=== PATIENT | female | born 1960 | race Caucasian/White ===

== ENCOUNTER 2021-06-17 06:13 | Day surgery (SDC) | payer OTHER, SELFPAY ==
[2021-06-06 13:03] VITALS: BMI 34.2
--- NOTE | 2021-06-07 08:02 | MHC.SHP ---
Pre-Procedural Eval Section A Date of Service: 06/07/21 The patient is an INPATIENT: No The History & Physical has been completed within 30 days and I have reviewed it.: Yes Section B Chief Complaint: cataract Allergies: Allergies Allergy/AdvReac Type Severity Reaction Status Date / Time bupropion [From Wellbutrin] Allergy Severe hyperactivi Verified 06/06/21 13:09 ty levofloxacin [Levaquin] Allergy Severe muscle Verified 06/06/21 13:09 aches latex Allergy Intermediate Rash Verified 06/06/21 13:10 Plan Diagnosis/Plan: Unchanged I have reviewed the history and physical and performed a pertinent physical examination on my patient. No changes have occurred unless specified.
[2021-06-17 06:40] VITALS: BP 138/83; PULSE 76; RESP 18; TEMP 36.2; O2SAT 97
[2021-06-17] MEDS: Lactated Ringers 1,000 ML 50 ML IVCONT (06:51)
[2021-06-17] MEDS: Tetracaine HCl/PF 0.5% Oph Sol 4 ML DROPS 1 DROP EYE-RIGHT (07:00)
[2021-06-17] MEDS: Tropicamide 1 % Ophth Sol 3 ML BTL 1 DROP EYE-RIGHT ×3 (07:01→07:13)
[2021-06-17] MEDS: Phenylephrine HCL 2.5% Oph SoL 2 ML BOTTLE 1 DROP EYE-RIGHT ×3 (07:05→07:17)
--- NOTE | 2021-06-17 07:34 | HO.ANESPROP2 ---
HPI - Anesthesia Eval Consult details Narrative: Right eye Cataract PMFSH Past Medical History Medical History Arthritis COVID-19 vaccine series completed Depression Elevated cholesterol HTN (hypertension) Cognitive capacity: AAO X3 Functional capacity: independent ambulation Family History Family history of problems with anesthesia: No Surgical History Surgical History H/O colonoscopy History of bunionectomy Hx of arthroscopic knee surgery Hx of arthroscopy of knee Hx of cervical discectomy Hx of hand surgery Hx of tonsillectomy History of Problems with Anesthesia: No Social History Social History Are you a primary inspector health care facilities to a significant other at home: No Do you presently have visiting nurse or other home services: No Patient Tobacco Use Status: Current everyday Tobacco user Tobacco use type: Cigarette Cigarettes Per Day: 5 Years Smoked: 42 Use of substances other than those prescribed or required for medical reasons: No Have you been hit, kicked, punched, or otherwise hurt by someone within the past year? If so, by whom?: No Are you DNR?: No Advance Directives: No Advance Directives Information Provided: Yes (does not have HCP) Advance Directives on File: No Recently lost weight without trying: No Eating poorly because of decreased appetite: No Nutrition Risks: No Nutritional Risk Poor oral hygiene: No Meds Allergies Allergy/AdvReac Type Severity Reaction Status Date / Time bupropion [From Wellbutrin] Allergy Severe hyperactivi Verified 06/17/21 06:33 ty levofloxacin [Levaquin] Allergy Severe muscle Verified 06/17/21 06:33 aches latex Allergy Intermediate Rash Verified 06/17/21 06:33 Active Medications: Current Medications Generic Name Dose Route Start Last Admin Trade Name Freq PRN Reason Stop Dose Admin Lactated Ringer's 1,000 mls @ 50 mls/hr 06/14/21 12:15 06/17/21 06:51 Lr IVCONT 50 mls/hr .Q20H ARNEL Administration Povidone Iodine 1 appl 06/07/21 14:49 Povidone Iodine 5 % Ophth Soln 30 Ml Bottle EYE-RIGHT PREOP PRN Pre-Op Surgical Implant Prophy Povidone Iodine 1 appl 06/17/21 06:53 Povidone Iodine 5 % Ophth Soln 30 Ml Bottle EYE-RIGHT PREOP PRN Pre-Op Surgical Implant Prophy Tetracaine HCl 1 drop 06/17/21 14:51 06/17/21 07:00 Tetracaine Hcl/Pf 0.5% Oph Marleny 4 Ml Drops EYE-RIGHT 06/17/21 14:52 1 drop PREOP ONE Administration Home Medications Medication Instructions Recorded Confirmed Last Taken Type atorvastatin 40 mg tablet 1 tab PO BEDTIME 06/06/21 06/06/21 Unknown History cyclobenzaprine 10 mg tablet 1 tab PO BEDTIME 06/06/21 06/06/21 Unknown History fenofibrate 160 mg tablet 1 tab PO BEDTIME 06/06/21 06/06/21 Unknown History losartan 100 mg tablet 1 tab PO BEDTIME 06/06/21 06/06/21 Unknown History omeprazole magnesium 20 mg 20 mg PO DAILY PRN 06/06/21 06/06/21 Unknown History tablet,delayed release (Prilosec OTC) sertraline 100 mg tablet 1.5 tab PO BEDTIME 06/06/21 06/06/21 Unknown History valacyclovir 1 gram tablet 2 tab PO Q12H PRN 06/06/21 06/06/21 Unknown History Exam Exam Date and Time: June 17, 2021 0734 Height,Weight and Vital Signs: Height 5 ft Weight 79.379 kg Last Vital Signs Temp 97.1 F 06/17/21 06:40 Pulse 76 06/17/21 06:40 Resp 18 06/17/21 06:40 BP 138/83 06/17/21 06:40 Pulse Ox 97 06/17/21 06:40 Airway Mallampati Class: II TM Dist: >3cm Neck ROM: Full Loose/Missing/Broken Teeth: No (many caps) Heart: [id number] Lungs: cta b/l Assessment and Plan Assessment Anesthesia Assessment: Anesthesia Plan Discussed and Chart Reviewed Final Anesthetic Review Family History of Problems with Anesthesia: No History of Problems with Anesthesia: No NPO: Yes ASA Class: II Final Preanesthetic Review: No Changes in Pt Med Stat, Meds/Allgs Chart Reviewed, Consent Obtained/Reviewed and Anes Risks/Benef Reviewed Patient Risk: Low Procedure Risk: Low Assessment/Block/Sedation in SS: Assess/Block/Sedation-SS Anesthetic Plan Anesthetic Plan: MAC: and Agree w/ Assess. and Plan Disposition: Standard PACU
[2021-06-17 08:27] VITALS: BP 130/78; PULSE 70; RESP 16; TEMP 36.1; O2SAT 95
--- NOTE | 2021-06-17 08:27 | MHC.SHP ---
Pre-Procedural Eval Section A Date of Service: 06/17/21 The patient is an INPATIENT: No The History & Physical has been completed within 30 days and I have reviewed it.: Yes Section B Chief Complaint: cataract Allergies: Allergies Allergy/AdvReac Type Severity Reaction Status Date / Time bupropion [From Wellbutrin] Allergy Severe hyperactivi Verified 06/17/21 06:33 ty levofloxacin [Levaquin] Allergy Severe muscle Verified 06/17/21 06:33 aches latex Allergy Intermediate Rash Verified 06/17/21 06:33 Plan Diagnosis/Plan: Unchanged I have reviewed the history and physical and performed a pertinent physical examination on my patient. No changes have occurred unless specified.
--- NOTE | 2021-06-17 08:28 | HO.PNOPHT ---
Ophthalmology Procedure Procedure Date of Service: 06/17/21 Ophthalmology Viscoelastic: Sj Barrt Dual Pack Pro Ophthalmology Lenses: TECBECCA [id number] (22) Procedure Notes: PREOPERATIVE DIAGNOSIS: Decreased visual acuity right eye secondary to cataract POSTOPERATIVE DIAGNOSIS: Same PROCEDURE: Right cataract extraction with intraocular lens insertion SURGEON: Steve Vickers M.D. ANESTHESIA: Topical/MAC ESTIMATED BLOOD LOSS: None COMPLICATIONS: None After obtaining informed consent, the patient was brought to the operating room suite and placed in the supine position. After adequate sedation per anesthesia, topical drops of Tetracaine were given to the right eye. The eye was then prepped and draped in the usual sterile fashion. The operating room microscope was then positioned over the operative eye and a lid speculum placed. A paracentesis was created. Viscoelastic was then instilled into the anterior chamber. A three plane incision was then created temporally, utilizing a 2.85 mm keratome. Capsulotomy forceps were then utilized to create a circular tear capsulotomy. Hydrodissection and hydrodelineation were carried out until adequate mobilization of the nucleus occurred. Phacoemulsification was then utilized to remove the dense central nucleus followed by removal of the cortical material utilizing the automated aspiration irrigation unit. Viscoelastic was instilled into the posterior capsular bag followed by placement of a posterior chamber intraocular lens without difficulty. The residual Viscoelastic was then removed utilizing the automated IA machine. The wound was checked and found to be watertight. The patient tolerated the procedure well and the lid speculum was removed. Intracameral injection of Vigamox 0.1 mL followed by a subtenon injection of Kenalog-40 0.2 mL were administered. The patient will be seen in the a.m.
== END 2021-06-17 08:39 | disposition home or self-care (01) ==
PROVIDERS: PCP Nurse Practitioner Family; Visit Provider Ophthalmology
PROC: (CPT 66985; principal; 2021-06-17 08:00)
DX: H25.11 Age-related nuclear cataract, right eye (principal); H52.4 Presbyopia; Z83.511 Family history of glaucoma; H35.033 Hypertensive retinopathy, bilateral; I10 Essential (primary) hypertension; F32.9 Major depressive disorder, single episode, unspecified; E78.00 Pure hypercholesterolemia, unspecified; Z79.899 Other long term (current) drug therapy; F17.210 Nicotine dependence, cigarettes, uncomplicated
CPT/HCPCS: 66984; J2250; J3010; J3300; V2632

== ENCOUNTER 2021-07-01 07:10 | Day surgery (SDC) | payer OTHER, SELFPAY ==
[2021-06-06 13:13] VITALS: BMI 34.2
--- NOTE | 2021-06-24 13:45 | MHC.SHP ---
Pre-Procedural Eval Section A Date of Service: 06/24/21 The patient is an INPATIENT: No The History & Physical has been completed within 30 days and I have reviewed it.: Yes Section B Chief Complaint: cataract Allergies: Allergies Allergy/AdvReac Type Severity Reaction Status Date / Time bupropion [From Wellbutrin] Allergy Severe hyperactivi Verified 06/17/21 06:33 ty levofloxacin [Levaquin] Allergy Severe muscle Verified 06/17/21 06:33 aches latex Allergy Intermediate Rash Verified 06/17/21 06:33 Plan Diagnosis/Plan: Unchanged I have reviewed the history and physical and performed a pertinent physical examination on my patient. No changes have occurred unless specified.
--- NOTE | 2021-06-27 14:26 | P.CONAN_ITS ---
Documented by User: Kaity Roldan NP 06/27/21 14:26 HPI - Anesthesia Eval Consult details Narrative: 61yo F for Left Cataract Extraction IOL Insertion PCP cleared Right 06/17: Fent 51, Midaz 2 PMFSH Past Medical History Medical History Arthritis COVID-19 vaccine series completed Depression Elevated cholesterol HTN (hypertension) Family History Family history of problems with anesthesia: No Surgical History Surgical History H/O colonoscopy History of bunionectomy Hx of arthroscopic knee surgery Hx of arthroscopy of knee Hx of cervical discectomy Hx of hand surgery Hx of tonsillectomy History of Problems with Anesthesia: No Social History Social History Are you a primary workforce investment act career manager to a significant other at home: No Do you presently have visiting nurse or other home services: No Patient Tobacco Use Status: Current everyday Tobacco user Tobacco use type: Cigarette Cigarettes Per Day: 5 Years Smoked: 42 Use of substances other than those prescribed or required for medical reasons: No Have you been hit, kicked, punched, or otherwise hurt by someone within the past year? If so, by whom?: No Are you DNR?: No Advance Directives: No Advance Directives Information Provided: Yes (does not have HCP) Advance Directives on File: No Recently lost weight without trying: No Eating poorly because of decreased appetite: No Nutrition Risks: No Nutritional Risk Poor oral hygiene: No Meds Allergies Allergy/AdvReac Type Severity Reaction Status Date / Time bupropion [From Wellbutrin] Allergy Severe hyperactivi Verified 06/17/21 06:33 ty levofloxacin [Levaquin] Allergy Severe muscle Verified 06/17/21 06:33 aches latex Allergy Intermediate Rash Verified 06/17/21 06:33 Home Medications Medication Instructions Recorded Confirmed Last Taken Type atorvastatin 40 mg tablet 1 tab PO BEDTIME 06/06/21 06/06/21 Unknown History cyclobenzaprine 10 mg tablet 1 tab PO BEDTIME 06/06/21 06/06/21 Unknown History fenofibrate 160 mg tablet 1 tab PO BEDTIME 06/06/21 06/06/21 Unknown History losartan 100 mg tablet 1 tab PO BEDTIME 06/06/21 06/06/21 Unknown History omeprazole magnesium 20 mg 20 mg PO DAILY PRN 06/06/21 06/06/21 Unknown History tablet,delayed release (Prilosec OTC) sertraline 100 mg tablet 1.5 tab PO BEDTIME 06/06/21 06/06/21 Unknown History valacyclovir 1 gram tablet 2 tab PO Q12H PRN 06/06/21 06/06/21 Unknown History Exam Exam Date and Time: June 27, 2021 1426 Height,Weight and Vital Signs: Height 5 ft Weight 79.379 kg Assessment and Plan Assessment Anesthesia Assessment: Chart Reviewed Final Anesthetic Review Family History of Problems with Anesthesia: No History of Problems with Anesthesia: No Documented by User: Nicole Genao MD 07/01/21 08:24 [facility] Past Medical History Medical History Arthritis COVID-19 vaccine series completed Depression Elevated cholesterol HTN (hypertension) Surgical History Surgical History H/O colonoscopy History of bunionectomy Hx of arthroscopic knee surgery Hx of arthroscopy of knee Hx of cervical discectomy Hx of hand surgery Hx of tonsillectomy History of Problems with Anesthesia: No Social History Social History Are you a primary workforce investment act career manager to a significant other at home: No Do you presently have visiting nurse or other home services: No Patient Tobacco Use Status: Current everyday Tobacco user Tobacco use type: Cigarette Cigarettes Per Day: 5 Years Smoked: 42 Use of substances other than those prescribed or required for medical reasons: No Have you been hit, kicked, punched, or otherwise hurt by someone within the past year? If so, by whom?: No Are you DNR?: No Advance Directives: No Advance Directives Information Provided: Yes (does not have HCP) Advance Directives on File: No Recently lost weight without trying: No Eating poorly because of decreased appetite: No Nutrition Risks: No Nutritional Risk Poor oral hygiene: No Meds Allergies Allergy/AdvReac Type Severity Reaction Status Date / Time bupropion [From Wellbutrin] Allergy Severe hyperactivi Verified 06/17/21 06:33 ty levofloxacin [Levaquin] Allergy Severe muscle Verified 06/17/21 06:33 aches latex Allergy Intermediate Rash Verified 06/17/21 06:33 Home Medications Medication Instructions Recorded Confirmed Last Taken Type atorvastatin 40 mg tablet 1 tab PO BEDTIME 06/06/21 06/06/21 Unknown History cyclobenzaprine 10 mg tablet 1 tab PO BEDTIME 06/06/21 06/06/21 Unknown History fenofibrate 160 mg tablet 1 tab PO BEDTIME 06/06/21 06/06/21 Unknown History losartan 100 mg tablet 1 tab PO BEDTIME 06/06/21 06/06/21 Unknown History omeprazole magnesium 20 mg 20 mg PO DAILY PRN 06/06/21 06/06/21 Unknown History tablet,delayed release (Prilosec OTC) sertraline 100 mg tablet 1.5 tab PO BEDTIME 06/06/21 06/06/21 Unknown History valacyclovir 1 gram tablet 2 tab PO Q12H PRN 06/06/21 06/06/21 Unknown History Exam Airway Mallampati Class: II TM Dist: >3cm Neck ROM: Full Loose/Missing/Broken Teeth: No Heart: RRR Lungs: CTA Assessment and Plan Assessment Anesthesia Assessment: Anesthesia Plan Discussed Final Anesthetic Review History of Problems with Anesthesia: No NPO: Yes ASA Class: II Final Preanesthetic Review: Meds/Allgs Chart Reviewed, Consent Obtained/Reviewed and Anes Risks/Benef Reviewed Patient Risk: Low Procedure Risk: Low Anesthetic Plan Anesthetic Plan: MAC: Disposition: Standard PACU
[2021-07-01 08:08] VITALS: BP 152/87; PULSE 78; RESP 16; TEMP 36; O2SAT 97
[2021-07-01] MEDS: Lactated Ringers 500 ML 50 ML IV (08:13)
[2021-07-01] MEDS: Tetracaine HCl/PF 0.5% Oph Sol 4 ML DROPS 1 DROP EYE-LEFT (08:13)
[2021-07-01] MEDS: Tropicamide 1 % Ophth Sol 3 ML BTL 1 DROP EYE-LEFT ×3 (08:15→08:28)
[2021-07-01] MEDS: Phenylephrine HCL 2.5% Oph SoL 2 ML BOTTLE 1 DROP EYE-LEFT ×3 (08:18→08:33)
--- NOTE | 2021-07-01 09:54 | HO.PNOPHT ---
Ophthalmology Procedure Procedure Date of Service: 07/01/21 Ophthalmology Viscoelastic: Healon Duet Dual Pack Pro Ophthalmology Lenses: TECBECCA [id number] (22) Procedure Notes: PREOPERATIVE DIAGNOSIS: Decreased visual acuity left eye secondary to cataract POSTOPERATIVE DIAGNOSIS: Same PROCEDURE: Left cataract extraction with intraocular lens insertion SURGEON: Steve Vickers M.D. ANESTHESIA: Topical/MAC ESTIMATED BLOOD LOSS: None COMPLICATIONS: None After obtaining informed consent, the patient was brought to the operation room suite and placed in the supine position. After adequate sedation per anesthesia, topical drops of Tetracaine were given to the left eye. The eye was then prepped and draped in the usual sterile fashion. The operating room microscope was then positioned over the operative eye and a lid speculum placed. A paracentesis was created. Viscoelastic was then instilled into the anterior chamber. A three plane incision was then created temporally, utilizing a 2.85 mm keratome. Capsulotomy forceps were then utilized to create a circular tear capsulotomy. Hydrodissection and hydrodelineation were carried out until adequate mobilization of the nucleus occurred. Phacoemulsification was then utilized to remove the dense central nucleus followed by removal of the cortical material utilizing the automated aspiration irrigation unit. Viscoat elastic was instilled into the posterior capsular bag followed by placement of a posterior chamber intraocular lens without difficulty. The residual Viscoat elastic was then removed utilizing the automated IA machine. The wound was check and found to be watertight. The patient tolerated the procedure well and the lid speculum was removed. Intracameral injection of Vigamox 0.1 mL followed by a subtenon injection of Kenalog-40 0.2 mL were administered. The patient will be seen in the a.m.
[2021-07-01 10:16] VITALS: BP 137/76; PULSE 66; RESP 16; TEMP 36.4; O2SAT 100
== END 2021-07-01 10:24 | disposition home or self-care (01) ==
PROVIDERS: PCP Nurse Practitioner Family; Visit Provider Ophthalmology
PROC: (CPT 66985; principal; 2021-07-01 09:40)
DX: H25.12 Age-related nuclear cataract, left eye (principal); H52.4 Presbyopia; Z83.511 Family history of glaucoma; H35.033 Hypertensive retinopathy, bilateral; I10 Essential (primary) hypertension; F17.210 Nicotine dependence, cigarettes, uncomplicated; Z79.899 Other long term (current) drug therapy; Z88.1 Allergy status to other antibiotic agents; Z88.8 Allergy status to other drugs, medicaments and biological substances
CPT/HCPCS: 66984; J2250; J3010; J3300; V2632

== ENCOUNTER 2024-02-17 10:03 | Outpatient (AMB) | payer OTHER, SELFPAY ==
[2024-02-17 10:11] VITALS: BP 142/78; PULSE 87; O2SAT 97; BMI 32.0
--- NOTE | 2024-02-17 10:11 | MHC.PC.OV ---
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 Allergies bupropion [From Wellbutrin] Allergy (Severe, Verified 02/17/24 10:25) hyperactivity levofloxacin [Levaquin] Allergy (Severe, Verified 02/17/24 10:25) muscle aches latex Allergy (Intermediate, Verified 02/17/24 10:25) Rash Medication List - Last Reconciled 02/17/24 by KEELY Madrid atorvastatin 1 tab PO BEDTIME [calcium 600 mg daily] cyclobenzaprine 10 mg PO BEDTIME PRN diclofenac sodium 75 mg PO BID fenofibrate 1 tab PO BEDTIME hydrochlorothiazide 25 mg PO DAILY losartan 1 tab PO BEDTIME multivitamin 1 tab PO DAILY omeprazole magnesium (Prilosec OTC) 20 mg PO DAILY PRN sertraline 1.5 tabs PO BEDTIME valacyclovir 2 tabs PO Q12H PRN Tobacco use date assessed: 02/17/24 Dental Screening Dental Screen Date: 02/17/24 Did you have a dental visit in the last 12 months?: Yes Did you have a dental problem in the last 6 months where you did not have access to dental care?: No Was dental information given to patient?: Patient has dentist HPI HPI Comments History of Present Illness Details Patient is a 63-year-old female who I am meeting for the 1st time. She has a past medical history significant for hypertension, dyslipidemia, anxiety and depression, and osteoarthritis of the bilateral knees. Patient has sent us medical records from previous provider. Patient is up-to-date in colonoscopy. Last colonoscopy performed 2022 Patient is up-to-date with mammogram, due for repeat 6 months. Patient is due for Pap smear, will refer to OBGYN Patient has chief complaint of bilateral hand pain. 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 Denies tingling or numbness. States she has reduction in strength, having difficulty opening jars containers and bottles. Has history of ganglion cyst removal. Patient states the pain does not improve during the day with movement or use. Patient utilizes diclofenac sodium for pain relief. Denies any trauma to the area. Patient has full range of motion. Will order x-ray. [facility] Medical History (Updated 02/17/24 @ 11:07 by KEELY Madrid) Frozen shoulder Bursitis of both hips COVID-19 vaccine series completed Arthritis Depression Elevated cholesterol HTN (hypertension) Surgical History History of bunionectomy Hx of tonsillectomy H/O colonoscopy Hx of arthroscopic knee surgery Hx of arthroscopy of knee Hx of cervical discectomy Hx of hand surgery Family History Father Hypertension Heart attack Mother Hypertension Stroke Social History Housing: House Are you a primary special needs caregiver to a significant other at home: No Do you presently have visiting nurse or other home services: No Patient Tobacco Use Status: Current everyday Tobacco user Tobacco use type: Cigarette Cigarettes Per Day: 10 Years Smoked: 42 e-Cigarette/Vaping Use: Never Used service: No Current occupational status: employed Cognitive needs: No Hearing needs: No Vision needs: Yes Questionnaire PHQ-9 Over the last 2 weeks, how often have you been bothered by any of the following problems? 1. Little interest or pleasure in doing things: not at all 2. Feeling down, depressed, or hopeless: not at all 3. Trouble falling or staying asleep, or sleeping too much: not at all 4. Feeling tired or having little energy: not at all 5. Poor appetite or overeating: not at all 6. Feeling bad about yourself - or that you are a failure or have let yourself or your family down: not at all 7. Trouble concentrating on things, such as reading the newspaper or watching television: not at all 8. Moving or speaking so slowly that other people could have noticed. Or the opposite - being so fidgety or restless that you have been moving around a lot more than usual: not at all 9. Thoughts that you would be better off or of hurting yourself in some way: not at all Total score: 0 Depression Screening Interpretation: Negative Depression Screening Done: Yes 71380 - PHQ-9 Billing: Yes Source: Developed by Drs. Dario Ley, Ryder Douglas and colleagues, with an educational tala from [employer]. Thrive Questionnaire Date Thrive assessed: 02/17/24 I am a: Patient What is your living situation today?: I have a steady place to live Within the past 12 months, did the food you bought not last and you didn't have the money to get more?: Never true Within the past 12 months, did you worry whether your food would run out before you got money to buy more?: Never true Do you have trouble paying for medicines?: No Do you have trouble getting transportation to medical appointments?: No Do you have trouble paying your heating and electricity bill?: No Do you have trouble taking care of your child, family member or friend?: No Do you have trouble with day-to-day activities such as bathing, preparing meals, shopping, managing finances, etc.?: No Are you currently unemployed and looking for a job?: No Are you interested in more education?: No Please select the resources that you would like help with: None THRIVE Score: 0 AUDIT C Alcohol Use Questionnaire (AUDIT-C) 1. How often do you have a drink containing alcohol?: 2-3 times a week 2. How many drinks containing alcohol do you have on a typical day when you are drinking?: 1 or 2 3. How often do you have six or more drinks on one occasion?: Never Total Score: 3 JAVI-7 AMB Questionnaire JAVI-7 Date JAVI - 7 assessed: 02/17/24 Feeling nervous, anxious, or on edge: 0 = Not at all Not being able to stop or control worryin = Not at all Worrying too much about different things: 0 = Not at all Trouble relaxin = Not at all Being so restless that it is hard to sit still: 0 = Not at all Becoming easily annoyed or irritable: 0 = Not at all Feeling afraid as if something awful might happen: 0 = Not at all Total JAVI-7 score (0-4 normal; 5-9 mild; 10-14 moderate; 15-21 severe): 0 Source: Developed by Jammie Alvares Kurt Kroenke and colleagues, with an educational tala from [employer]. JAVI-7 Assessment Billing JAVI-7 Assessment Tool: JAVI-7 Assessment 78129 Review of Systems Const All systems reviewed & are unremarkable except as noted in HPI and below Denies chills, Denies fever(s) and Denies headache(s) ENT Denies dizziness and Denies headache(s) Card Denies chest pain, Denies dyspnea and Denies dyspnea on exertion Resp Denies cough, Denies dyspnea, Denies dyspnea on exertion and Denies wheezing GI Denies diarrhea, Denies nausea and Denies vomiting Musc Reports arthralgias (Bilateral hand pain, bilateral SI joint pain) and Reports radiating pain into limb (Pain from hips down to bilateral knees) Neuro Denies dizziness and Denies headache(s) Psych Denies homicidal ideation and Denies suicidal ideation Aller/Immun Denies wheezing Physical exam (Primary Care) Vital Signs: Last Vital Signs Pulse 87 02/17/24 10:11 BP 142/78 H 02/17/24 10:11 Pulse Ox 97 02/17/24 10:11 Oxygen Delivery Method Room Air 02/17/24 10:11 Care Plan Goal for BP management: Patient will take blood pressure measurements at home BMI result Body Mass Index 32.0 Tobacco/Smoking Status: Tobacco use Status Tobacco use date assessed 02/17/24 02/17/24 10:20 Patient Tobacco Use Status Current everyday Tobacco 02/17/24 10:13 Tobacco use type Cigarette 02/17/24 10:13 e-Cigarette/Vaping Use Never Used 02/17/24 10:20 Are you ready to quit: No Depression Screening Interpretation: Negative Const General: cooperative and no acute distress Orientation/consciousness: patient oriented x3 Limitations: no limitations HENMT Head: Yes normal to inspection and Yes normocephalic Neck Neck: Yes normal visual inspection Resp Effort & Inspection: normal respiratory effort Auscultation: clear to auscultation bilaterally Cardio Rate: regular rate Rhythm: regular rhythm General: Yes no CVA tenderness Back/Spine/Pelvis Back: no CVA tenderness Sacroiliac joints: bilaterally tender to palpation Neuro General: patient oriented x3 Extrem General: Yes normal to inspection Right lower extremity: normal to inspection and full ROM Left lower extremity: normal to inspection and full ROM Assessment and Plan Assessment & Plan (1) Bilateral hand pain: Comment: Will obtain bilateral hand x-ray. Will also draw labs including rheumatoid factor Code(s): M79.641 - Pain in right hand; M79.642 - Pain in left hand Plan: Goals: Patient will get x-ray Barriers: Patient currently works [employer] and is constantly using bilateral hands at work (2) Sacroiliac joint pain: Comment: Will order SI joint x-ray. Will refer to pain clinic or physical therapy if indicated Code(s): M53.3 - Sacrococcygeal disorders, not elsewhere classified Plan: Take your medications as prescribed. If you were prescribed antibiotics today, it is important that you take your medication to their entirety, do not skip any doses, do not finish them early. Follow-up with your primary care provider this week. Return to the emergency department with new or worsening symptoms. Such as fevers, chills, chest pain, shortness of breath, nausea, vomiting, dizziness, headache, vision changes, lethargy In case of emergency call 911 Plan Follow-up with PCP Orders: Orders Comprehensive Met. Panel Today Z91.89 - Other specified personal risk factors, not elsewhere classified Vitamin B6 Today Z13.21 - Encounter for screening for nutritional disorder Vitamin B12 Today Z13.21 - Encounter for screening for nutritional disorder TSH reflex Free T4 Today Z13.29 - Encounter for screening for other suspected endocrine disorder XR hand RT min 3V Today M79.641 - Pain in right hand, M79.642 - Pain in left hand Rheumatoid Factor Today M79.641 - Pain in right hand, M79.642 - Pain in left hand Complete Blood Count Auto Diff Today Z13.0 - Encounter for screening for diseases of the blood and blood-forming organs and certain disorders involving the immune mechanism Lipid Panel Today Z13.220 - Encounter for screening for lipoid disorders Vitamin D 25-OH (D2 and D3) Today Z13.21 - Encounter for screening for nutritional disorder UA CC w/rflx Micro + Cult Today Z13.89 - Encounter for screening for other disorder XR hand LT min 3V Today M79.641 - Pain in right hand, M79.642 - Pain in left hand XR sacroiliac joint 1-2V Today M53.3 - Sacrococcygeal disorders, not elsewhere classified Referrals [facility] Referral Z12.4 - Encounter for screening for malignant neoplasm of cervix Medications: Changed From sertraline 1.5 tabs PO BEDTIME To sertraline 150 mg (1.5 x 100 mg) PO BEDTIME 90 tabs 0RF Coding Level of Care Code Est Pt Level 3 (15896) Diagnoses Bilateral hand pain M79.641; M79.642 Sacroiliac joint pain M53.3 Additional Codes JAVI-7 Assessment Billing - JAVI-7 Assessment Tool: JAVI-7 Assessment 75149 ([id number]) Time Spent (min) 28
== END 2024-02-17 11:19 | disposition home or self-care (01) ==
PROVIDERS: PCP Nurse Practitioner Family; Visit Provider Nurse Practitioner Primary Care
DX: M79.641 Pain in right hand (principal); M79.642 Pain in left hand; M53.3 Sacrococcygeal disorders, not elsewhere classified
CPT/HCPCS: 99213

== ENCOUNTER 2024-02-17 10:56 | Outpatient (REF) | payer OTHER, SELFPAY ==
--- NOTE | ~2024-02-17 | XR_ITS ---
EXAMINATION: XR SACROILIAC JOINTS CLINICAL INFORMATION: Sacrococcygeal disorder. COMPARISON: Sacroiliac radiographs dated 10/02/2010. TECHNIQUE: 3 views of the sacroiliac joints FINDINGS: No acute fracture or dislocation. Mild bilateral sacroiliac joint space narrowing with tiny inferior marginal osteophytes. No periarticular erosion. No concerning lytic or blastic osseous lesion. No evidence of femoral head avascular necrosis. [id number] right and mild left hip osteoarthritis. Probable calcified fibroid within the pelvis. Atherosclerotic calcifications. XR/XR sacroiliac joint 1-2V IMPRESSION: 1. Mild bilateral sacroiliac joint osteoarthritis. 2. [id number] right and mild left hip osteoarthritis.
--- NOTE | ~2024-02-17 | XR_ITS ---
EXAMINATION: XR HAND, RIGHT XR HAND, LEFT CLINICAL INFORMATION: Pain in right hand. COMPARISON: None. TECHNIQUE: PA, oblique, and lateral views of the right and left hand. FINDINGS: RIGHT HAND: No acute fracture or dislocation. Normal carpal alignment. Minimal joint space narrowing with tiny marginal osteophytes at the triscaphe and first carpometacarpal joints. Additional tiny marginal osteophytes throughout the distal interphalangeal joints. No periarticular erosion or osteopenia. No abnormal soft tissue calcification. LEFT HAND: No acute fracture or dislocation. Normal carpal alignment. Minimal joint space narrowing with tiny marginal osteophytes at the triscaphe and first carpal metacarpal joints as well as scattered throughout the distal interphalangeal joints. No periarticular erosion or osteopenia. No abnormal soft tissue calcification. XR/XR hand RT min 3V IMPRESSION: RIGHT HAND: Minimal degenerative arthritis at the triscaphe and first carpometacarpal joints as well as scattered throughout the distal interphalangeal joints. LEFT HAND: Minimal degenerative arthritis at the triscaphe and first carpometacarpal joints as well as scattered throughout the distal interphalangeal joints.
--- NOTE | ~2024-02-17 | XR_ITS ---
EXAMINATION: XR HAND, RIGHT XR HAND, LEFT CLINICAL INFORMATION: Pain in right hand. COMPARISON: None. TECHNIQUE: PA, oblique, and lateral views of the right and left hand. FINDINGS: RIGHT HAND: No acute fracture or dislocation. Normal carpal alignment. Minimal joint space narrowing with tiny marginal osteophytes at the triscaphe and first carpometacarpal joints. Additional tiny marginal osteophytes throughout the distal interphalangeal joints. No periarticular erosion or osteopenia. No abnormal soft tissue calcification. LEFT HAND: No acute fracture or dislocation. Normal carpal alignment. Minimal joint space narrowing with tiny marginal osteophytes at the triscaphe and first carpal metacarpal joints as well as scattered throughout the distal interphalangeal joints. No periarticular erosion or osteopenia. No abnormal soft tissue calcification. XR/XR hand LT min 3V IMPRESSION: RIGHT HAND: Minimal degenerative arthritis at the triscaphe and first carpometacarpal joints as well as scattered throughout the distal interphalangeal joints. LEFT HAND: Minimal degenerative arthritis at the triscaphe and first carpometacarpal joints as well as scattered throughout the distal interphalangeal joints.
== END 2024-02-17 10:57 | disposition home or self-care (01) ==
LOC: HO.HMGCX 10:56
PROVIDERS: PCP Nurse Practitioner Primary Care; Visit Provider Nurse Practitioner Primary Care
DX: M79.641 Pain in right hand (principal); M79.642 Pain in left hand; M53.3 Sacrococcygeal disorders, not elsewhere classified
CPT/HCPCS: 72200; 73130

== ENCOUNTER 2024-03-23 11:01 | Outpatient (REF) | payer OTHER, SELFPAY ==
[2024-03-30 22:47] LABS: HPV mRNA E6/E7 rflx Not Detected (Not Detected)
== END 2024-03-23 11:02 | disposition home or self-care (01) ==
LOC: HO.LAB 11:01
PROVIDERS: PCP Nurse Practitioner Primary Care; Visit Provider Advanced Practice Midwife
DX: Z01.419 Encounter for gynecological examination (general) (routine) without abnormal findings (principal); Z11.51 Encounter for screening for human papillomavirus (HPV)
CPT/HCPCS: 87624; 88142

== ENCOUNTER 2024-03-23 11:01 | Outpatient (AMB) | payer OTHER, SELFPAY ==
--- NOTE | 2024-03-23 11:04 | A.OFFVIS_ITS ---
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 In Required: No Information Interpreted: clinical only Director Of Consumer Affairs: Director Of Consumer Affairs Present Allergies bupropion [From Wellbutrin] Allergy (Severe, Verified 03/23/24 11:11) hyperactivity levofloxacin [Levaquin] Allergy (Severe, Verified 03/23/24 11:11) muscle aches latex Allergy (Intermediate, Verified 03/23/24 11:11) Rash Medication List - Last Reconciled 03/23/24 by Kathy Lowe CNM atorvastatin 1 tab PO BEDTIME [calcium 600 mg daily] cyclobenzaprine 10 mg PO BEDTIME PRN diclofenac sodium 75 mg PO BID fenofibrate 1 tab PO BEDTIME hydrochlorothiazide 25 mg PO DAILY losartan 1 tab PO BEDTIME multivitamin 1 tab PO DAILY omeprazole magnesium (Prilosec OTC) 20 mg PO DAILY PRN sertraline 150 mg (1.5 x 100 mg) PO BEDTIME valacyclovir 2 tabs PO Q12H PRN Is last menstrual period known: No Post menopausal: Yes (2003) Do you need a note to return to daycare/school/sports/work: No HPI 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 She has not really having any problems her last provider used to do Paps but she has left primary care. She has not sexually active with her anyone because postmenopausally her too much. She is retiring at the end of the year. She is a smoker but she does not smoke very much or finish the cigarettes at all. She is other health concerns but they managed she had a frozen shoulder that was released in surgery and she has had neck surgery as well. She likes gardening and will stay active when she retires.. [facility] Medical History Frozen shoulder Bursitis of both hips COVID-19 vaccine series completed Arthritis Depression Elevated cholesterol HTN (hypertension) Surgical History History of bunionectomy Hx of tonsillectomy H/O colonoscopy Hx of arthroscopic knee surgery Hx of arthroscopy of knee Hx of cervical discectomy Hx of hand surgery Family History Father Hypertension Heart attack Mother Hypertension Stroke Social History Housing: House Are you a primary critical care clinical nurse specialist to a significant other at home: No Do you presently have visiting nurse or other home services: No Patient Tobacco Use Status: Current everyday Tobacco user Tobacco use type: Cigarette Cigarettes Per Day: 10 Years Smoked: 42 e-Cigarette/Vaping Use: Never Used service: No Current occupational status: employed Cognitive needs: No Hearing needs: No Vision needs: Yes Female Reproductive History Menstrual Age of Menarche: 13 Duration of menses: 3-5 days control method: none Total pregnancies: 1 Full term: 0 Date of last pap smear: 12/01/07 (negative, per patient) History of abnormal pap smear: No Date of Mammogram: 12/01/22 (negative, per patient) History of abnormal mammogram: No Physical Exam Vital Signs: Last Vital Signs BP 138/78 03/23/24 11:10 BMI result Body Mass Index 31.8 Const General: healthy appearing, comfortable, no acute distress, well developed and alert Nutritional Appearance: average body habitus Orientation/consciousness: patient oriented x3 Limitations: no limitations HEENT Head: Yes normocephalic Neck Neck: Yes normal visual inspection Thyroid: Thyroid normal Chest Chest palpation & inspection: normal inspection of the chest Breast/axilla inspection: normal inspection of the breasts and normal inspection of the axillae Breast/axilla palpation: normal palpation of the breasts and normal palpation of the axillae Resp Effort & Inspection: normal respiratory effort GI Inspection: Yes normal to inspection, No Abdominal wall edema and No distended Palpation (GI): Soft to palpation and nontender Other: Normal external exam vagina is pink and moist cervix flattened against vaginal wall atrophic vaginal changes noted uterus small midposition mobile nontender adnexa nontender good tone with Kegel. General: Yes bladder normal to palpation External Female Exam: normal external appearance and normal appearance of the urethra Speculum Exam - Vagina: normal appearance of the vagina, normal palpation and normal vaginal discharge Speculum Exam - Cervix: normal appearance of the cervix, normal palpation and nontender Bimanual exam- vagina & uterus: normal bimanual exam, normal palpation, uterine size normal, bladder normal to palpation, consistency normal, normal palpation, uterine mobility normal, uterine shape normal, No Cervical tenderness present, non-tender and no cervical motion tenderness Bimanual Exam- Adnexa, other: normal adnexae, no masses, normal and No adnexal tenderness Neuro General: patient oriented x3 Assessment & Plan Assessment & Plan (1) Well woman exam with routine gynecological exam: Code(s): Z01.419 - Encounter for gynecological examination (general) (routine) without abnormal findings Category: Medical (2) Breast cancer screening: Code(s): Z12.39 - Encounter for other screening for malignant neoplasm of breast Category: Medical (3) Cervical cancer screening: Code(s): Z12.4 - Encounter for screening for malignant neoplasm of cervix Category: Medical Plan -----Discussed in this visit the following: healthy balanced diet, regular and consistent exercise, getting recommended health screens, doing the best she can for her particular health concerns, kegel exercises, pap smear screening and followup recommendations, mammography screening and SBE, normal changes in cycles in her life stage--- . Pap smear was done she declined an cultures as not necessary. I am ordering her mammogram. She will be getting some more labs per her primary care provider. Discussed smoking cessation and what she is tried she was able to quit smoking wants when she had the next surgery but then started again she is aware of what she smokes tries to keep it somewhat minimal. Orders: Orders MM tomosynthesis screening BI Today Z01.419 - Encounter for gynecological examination (general) (routine) without abnormal findings, Z12.31 - Encounter for screening mammogram for malignant neoplasm of breast, Z12.39 - Encounter for other screening for malignant neoplasm of breast, Z12.4 - Encounter for screening for malignant neoplasm of cervix Pap Smear Today Z01.419 - Encounter for gynecological examination (general) (routine) without abnormal findings Coding Level of Care Code New Pt Prev Care 40-64y(53707) Diagnoses Well woman exam with routine gynecological exam Z01.419 Breast cancer screening Z12.39 Cervical cancer screening Z12.4
[2024-03-23 11:10] VITALS: BP 138/78; BMI 31.8
== END 2024-03-23 12:09 | disposition home or self-care (01) ==
PROVIDERS: PCP Nurse Practitioner Primary Care; Visit Provider Advanced Practice Midwife
DX: Z01.419 Encounter for gynecological examination (general) (routine) without abnormal findings (principal); Z12.39 Encounter for other screening for malignant neoplasm of breast; Z12.4 Encounter for screening for malignant neoplasm of cervix
CPT/HCPCS: 99386

== ENCOUNTER 2024-04-04 07:30 | Outpatient (RCR) | payer OTHER, SELFPAY ==
--- NOTE | 2024-03-23 09:02 | MHC.OT.EP ---
[address] [phone] Occupational Therapy Plan of Care Patient Name: Ondina Burrell Date of Evaluation: 03/23/24 Diagnosis: B/L hand pain Pain Location: Pain free at rest 7/10 sharp pain in digits when triggering Ache is right palm over carpal tunnel Tenderness in volar MCP's B/L'ly Pain Score: 7 Pain Scale Used: Numeric (0 - 10) Aggravating Factors: Gripping, lifting, force to hands Alleviating Factors: Ice Assessment: 63 yo female presents w/ hx of B/L hand pain and locking, starting about six months ago. X-rays shows mild degenerative arthritis in B/L hands. On assessment today, she demos active triggering in several digits on both hands, with tenderness over A1 pulleys. She has laxity in B/L CMCs, but no pain w/ grind test. We will continue course of OT for protection and management of multiple trigger digits, has well w/ strengthening and joint protection for hand arthritis. Frequency and Duration: The patient will be seen 2x/wk for 4 weeks Short Term Goals: Ind w/ nighttime Oval 8 orthosis wear (day wear if needed also) Ind w/ strengthening exercises for arthritic hands Good understanding of joint protection for arthritis and triggering Ind w/ use of ice/heat modalities appropriately Alf Goals: Pt to report being trigger free in digits for daytime/nighttime Pt to report ease w/ work tasks Pt to demo ease with thumb-index okay pinch position Treatment Plan: Therapeutic Exercise Therapeutic Activity Home Exercise Program Splinting Patient Education Edema Control ADL Training Paraffin Fluidotherapy MHP Cold Packs Joint Mobilization Soft Tissue Mobilization Kinesiotaping Electronically Signed By: Yanira Marcus OTR/L CHT Please Sign and return to therapist. Thank you once again for your referral.
--- NOTE | 2024-04-11 09:13 | MHC.OT.DC ---
[address] [phone] F: [phone] Occupational Therapy Discharge Note Patient Name: Ondina Burrell Provider: Earle Gaston NP Diagnosis: B/L hand pain Date of Evaluation: 03/23/24 Date of Discharge: 04/11/24 Treatments to Date: 4 Discharge Status: Independent with HEP Patient Elected to Stop Recommend MD Follow-up Discharge Summary: Ondina was referred to OT w/ B/L hand pain consistent with OA and multiple trigger fingers. She has been educated on joint protection and home exercises, she has good follow through w/ nighttime Oval 8 wear to minimize triggering, but unable to wear during the day due to job demands. Work and home activity demands continue to be difficulty and pain and range have been relatively unchanged through brief course of therapy. Electronically Signed By: Yanira Marcus OTR/L CHT Reviewed/agree with student documentation: Therapist: Please Sign and return to therapist, thank you for your referral.
== END 2024-04-11 09:19 | disposition home or self-care (01) ==
LOC: HO.OT 07:30
PROVIDERS: PCP Nurse Practitioner Primary Care; Visit Provider Nurse Practitioner Primary Care
DX: M79.641 Pain in right hand (principal); M79.642 Pain in left hand
CPT/HCPCS: 97110; 97140; 97166; 97760

== ENCOUNTER 2024-04-06 08:39 | Outpatient (REF) | payer OTHER, SELFPAY ==
[2024-04-06 10:38] LABS: MANUAL DIFF FLAG NO
[2024-04-06 10:40] LABS: Appearance Urine Clear; Color Urine Yellow; Glucose Urine UA Negative (Negative); Leukocyte Esterase Urine Negative (Negative); Nitrite Urine Negative (Negative); PH 8.5 (5.0-9.0); Urine Blood Negative (Negative); Urine Ketones Negative (Negative); Urine Protein Negative (Neg-Trace)
[2024-04-06 10:46] LABS: Basophils Absolute Auto 0.1 X10*3/uL (0.0-0.2); Basophils Percent Auto 0.9 % (0-2); Eosinophils Absolute Auto 0.2 X10*3/uL (0.0-0.4); Eosinophils Percent Auto 2.5 % (0-4); Hematocrit 39.8 % (37.0-47.0); Hemoglobin 13.1 g/dl (12.0-16.0); Imm Gran Abs Auto 0.05 X10*3/uL (0.00-0.03); Imm Gran Pct Auto 0.7 % (0.0-0.4); Lymphocytes Percent Auto 29.3 % (20-40); Mean Corpuscular HGB Conc 32.9 g/dl (31.0-35.0); Mean Corpuscular Volume 91.1 fL (80.0-98.0); Mean Platelet Volume 11.3 fL (9.4-12.3); Monocytes Absolute Auto 0.7 X10*3/uL (0.1-1.2); Monocytes Percent Auto 10.7 % (2-11); Neutrophils Absolute Auto 3.9 x10*3/uL (2.0-8.3); Neutrophils Percent Auto 55.9 % (45-73); Platelet Count 302 X10*3/uL (160-400); Red Blood Count 4.37 X10*6/uL (4.20-5.50); Red Cell Distribution Width 14.2 % (11.0-16.0); White Blood Count 6.9 X10*3/uL (4.8-10.8)
[2024-04-06 11:10] LABS: Alanine Aminotransferase 17 U/L (0-31); Albumin Level 4.2 g/dL (3.5-5.0); Alkaline Phosphatase 49 U/L (39-117); Anion Gap 15 (12-20); Aspartate Amino Transferase 20 U/L (5-31); Bilirubin Total 0.3 mg/dL (0.0-1.0); Blood Urea Nitrogen 13 mg/dL (9-16); Calcium 9.3 mg/dL (8.4-10.2); Carbon Dioxide 27 mmol/L (22-29); Chloride 107 mmol/L (96-108); Cholesterol 190 mg/dL (<200); Estimated Glomerular Filt Rate > 60; Glucose Random 94 mg/dL (60-115); HDL Cholesterol 67 mg/dL (>40); LDL Cholesterol Calculated 109 mg/dL (<100); Potassium 4.5 mmol/L (3.3-5.1); Sodium 144 mmol/L (135-145); Total Protein 6.8 g/dL (6.5-8.0); Triglycerides 72 mg/dL (<150)
[2024-04-06 11:11] LABS: Rheumatoid Factor < 13.0 IU/mL (<15.0)
[2024-04-06 11:14] LABS: TSH reflex Free T4 0.98 uIU/mL (0.32-4.0)
[2024-04-06 11:26] LABS: Vitamin B12 400 pg/mL (200-900)
[2024-04-11 10:38] LABS: Vitamin D 25-OH, D2 <4 ng/mL; Vitamin D 25-OH, D3 10 ng/mL; Vitamin D 25-OH, Total 10 ng/mL (30-100)
[2024-04-15 05:48] LABS: Vitamin B6 12.3 ng/mL (2.1-21.7)
== END 2024-04-06 08:40 | disposition home or self-care (01) ==
LOC: HO.HMGCLDS 08:39
PROVIDERS: PCP Nurse Practitioner Primary Care; Visit Provider Nurse Practitioner Primary Care
DX: Z91.89 Other specified personal risk factors, not elsewhere classified (principal); M79.641 Pain in right hand; M79.642 Pain in left hand; Z13.21 Encounter for screening for nutritional disorder; Z13.89 Encounter for screening for other disorder; Z13.29 Encounter for screening for other suspected endocrine disorder; Z13.0 Encounter for screening for diseases of the blood and blood-forming organs and certain disorders involving the immune mechanism; Z13.220 Encounter for screening for lipoid disorders
CPT/HCPCS: 36415; 80053; 80061; 81003; 82306; 82607; 84207; 84443; 85025; 86431

== ENCOUNTER 2024-04-27 10:05 | Outpatient (AMB) | payer OTHER, SELFPAY ==
--- NOTE | 2024-04-27 10:17 | A.OFFPC_ITS ---
Vital Signs 04/27/24 10:19 Height 5 ft Weight 162 lb BMI 31.6 BP 128/80 Blood Pressure Location Lt brachial Position Sitting Pulse 85 Pulse Source Pulse Oximeter Pulse Oximetry (%) 95 Oxygen Delivery Method Room Air Intake Visit Reasons: 3 month follow up Intake Note: pt is here for 3 mo f/u Allergies bupropion [From Wellbutrin] Allergy (Severe, Verified 04/27/24 10:31) hyperactivity levofloxacin [Levaquin] Allergy (Severe, Verified 04/27/24 10:31) muscle aches latex Allergy (Intermediate, Verified 04/27/24 10:31) Rash Medication List - Last Reconciled 04/27/24 by KEELY [place] atorvastatin 1 tab PO BEDTIME [calcium 600 mg daily] cyclobenzaprine 10 mg PO BEDTIME PRN diclofenac sodium 75 mg PO BID fenofibrate 1 tab PO BEDTIME hydrochlorothiazide 25 mg PO DAILY losartan 1 tab PO BEDTIME multivitamin 1 tab PO DAILY omeprazole magnesium (Prilosec OTC) 20 mg PO DAILY PRN sertraline 150 mg (1.5 x 100 mg) PO BEDTIME valacyclovir 2 tabs PO Q12H PRN Tobacco use date assessed: 04/27/24 Dental Screening Dental Screen Date: 04/27/24 HPI HPI Comments History of Present Illness Details Patient is a 64-year-old female in today for a follow-up for bilateral hand pain. 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 Patient states his inhibiting her ability to perform her job as she often needs to open prescription bottles and uses her hands throughout the day. She had bilateral hand minimal degenerative changes at the 1st triscaphe and carpometocarpol joints as well as scattered through the distal interpahalngeal joints. Patient was referred to occupational therapy which she completed. This gave her minor relief. Patient utilizes diclofenac p.o. 75 mg intermittently with mild relief. Patient was also given bands to wear around her finger joints to help while she was sleeping. Patient reports pain is keep getting progressively worse. Will order diclofenac topical gel, patient has been educated to not combine this with p.o. medications. Will give short course of prednisone to assist with inflammation in hands. Patient will like referral to Orthopedic Hand special. Will refer [facility] Medical History Frozen shoulder Bursitis of both hips COVID-19 vaccine series completed Arthritis Depression Elevated cholesterol HTN (hypertension) Surgical History History of bunionectomy Hx of tonsillectomy H/O colonoscopy Hx of arthroscopic knee surgery Hx of arthroscopy of knee Hx of cervical discectomy Hx of hand surgery Family History Father Hypertension Heart attack Mother Hypertension Stroke Social History Housing: House Are you a primary day care teacher to a significant other at home: No Do you presently have visiting nurse or other home services: No Patient Tobacco Use Status: Current everyday Tobacco user Tobacco use type: Cigarette Cigarettes Per Day: 10 Years Smoked: 42 e-Cigarette/Vaping Use: Never Used service: No Current occupational status: employed Cognitive needs: No Hearing needs: No Vision needs: Yes Female Reproductive History Menstrual Age of Menarche: 13 Questionnaire Thrive Questionnaire Date Thrive assessed: 02/17/24 AUDIT C Alcohol Use Questionnaire (AUDIT-C) 1. How often do you have a drink containing alcohol?: 2-3 times a week 2. How many drinks containing alcohol do you have on a typical day when you are drinking?: 1 or 2 3. How often do you have six or more drinks on one occasion?: Never Total Score: 3 Score Reviewed/Action Taken: Yes JAVI-7 AMB Questionnaire JAVI-7 Date JAVI - 7 assessed: 02/17/24 Source: Developed by Drs. Dario Ley, Jammie Medina, Ryder Baker and colleagues, with an educational tala from [employer]. Review of Systems Const All systems reviewed & are unremarkable except as noted in HPI and below Physical exam (Primary Care) Tobacco/Smoking Status: Tobacco use Status Tobacco use date assessed 02/17/24 04/27/24 10:17 Patient Tobacco Use Status Current everyday Tobacco 04/27/24 10:17 Tobacco use type Cigarette 04/27/24 10:17 e-Cigarette/Vaping Use Never Used 04/27/24 10:17 Thrive Assessment: Date of Thrive Assessment Date Thrive assessed 02/17/24 04/27/24 10:17 Const General: cooperative and no acute distress HENMT Head: Yes normal to inspection Eyes General: appearance normal, both eyes and all related structures Neck Neck: Yes normal visual inspection Resp Effort & Inspection: normal respiratory effort Auscultation: clear to auscultation bilaterally Cardio Rate: regular rate Rhythm: regular rhythm Heart sounds: S1 normal heart sound present and S2 normal heart sound present Extrem Right upper extremity: Extremity exam: right hand (Positive tenderness or metacarpals. PIP, MCP joints. Some erythema.) Left upper extremity: hand (Tenderness to PIP and MCP joints. Scant erythema. Limited range of motion) Assessment and Plan Assessment & Plan (1) Bilateral hand pain: Comment: Patient finished course of OT with mild effect. Utilizing so finger splints at night with mild effect pain is worse at night. Limited range of motion to making fist been grasping. This is inhibiting patient's ability to perform job as a pharmacy service associate. Patient has intermittently used diclofenac p.o. with mild effect. Patient will be given diclofenac topical gel to apply over affected joints. Patient will also be given short course of prednisone for apparent inflammation and MCP joints. Will refer patient to orthopedic hand specialist. Code(s): M79.641 - Pain in right hand; M79.642 - Pain in left hand Plan: Follow-up in 6 months Medications: New prednisone 20 mg PO BID 10 tabs 0RF diclofenac sodium 1% (Arthritis Pain (diclofenac)) apply to single elbow, wrist or hand; for hand includes palm/fingers/back of hand 2 grams topical QID 100 grams 0RF Coding Level of Care Code Est Pt Level 3 (11643) Diagnoses Bilateral hand pain M79.641; M79.642 Time Spent (min) 24
[2024-04-27 10:19] VITALS: BP 128/80; PULSE 85; O2SAT 95; BMI 31.6
== END 2024-04-27 10:45 | disposition home or self-care (01) ==
PROVIDERS: PCP Nurse Practitioner Family; Visit Provider Nurse Practitioner Primary Care
DX: M79.641 Pain in right hand (principal); M79.642 Pain in left hand
CPT/HCPCS: 99213

== ENCOUNTER 2024-05-03 10:27 | Outpatient (AMB) | payer OTHER, SELFPAY ==
--- NOTE | 2024-05-03 10:33 | MHC.OFFVIS ---
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 Patient reports all her fingers except her thumbs are locking and catching that started about 9 months ago. She attended PT however this was not helping. She continues to wear night splint on her fingers at night. States her right hand ring finger is the worse. Denies injury. She would like to discuss her options. Hx of trigger release in bilateral thumbs. 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 Patient previously had trigger bilateral trigger thumb releases ?a few years ago?. The patient reports that these symptoms began approximately 9 months ago, and have been progressively worsening since this time. She reports that she has seen physical therapy for this issue, but it has not helped. Patient also reports that she wears oval 8 splints on her fingers at night, with minimal symptom relief. Patient inquires about various treatment options, and asks when any potential surgery would be booked for, as she plans on retiring soon and will not have health insurance at that time. [facility] Medical History Frozen shoulder Bursitis of both hips COVID-19 vaccine series completed Arthritis Depression Elevated cholesterol HTN (hypertension) Surgical History History of bunionectomy Hx of tonsillectomy H/O colonoscopy Hx of arthroscopic knee surgery Hx of arthroscopy of knee Hx of cervical discectomy Hx of hand surgery Family History Father Hypertension Heart attack Mother Hypertension Stroke Social History (Reviewed 05/03/24 @ 10:42 by Merari Hernandez [facility] Housing: House Are you a primary care transition manager to a significant other at home: No Do you presently have visiting nurse or other home services: No Patient Tobacco Use Status: Current everyday Tobacco user Tobacco use type: Cigarette Cigarettes Per Day: 10 Years Smoked: 42 e-Cigarette/Vaping Use: Never Used service: No Current occupational status: employed 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, 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 Cognitive needs: No Hearing needs: No Vision needs: Yes Female Reproductive History Menstrual Age of Menarche: 13 Review of Systems Const All systems reviewed & are unremarkable except as noted in HPI and below Physical Exam Vital Signs: BMI result Body Mass Index 31.6 Const Other: Patient is alert, oriented, cooperative, and in no acute distress HEENT Head: Yes normocephalic and Yes atraumatic Resp Effort & Inspection: normal respiratory effort and able to speak in complete sentences Cardio Jugular venous distension: no JVD Neuro General: gait normal Cognition (Neuro): normal cognition Extrem Other: Patient is alert, oriented, and in no acute distress. Neuro: Median, ulnar, radial nerves motor and sensory intact and sensation is normal to the tips of all digits bilaterally. Vascular: Cap refill brisk bilaterally Pain: Patient reports soreness and discomfort to palpation of the A1 tanisha of the index, middle, and ring fingers of the right hand Patient reports soreness and discomfort to palpation of the A1 tanisha of the middle, ring, and small fingers of the left hand ROM: Patient is able to flex all digits of bilateral hands and make a fist with encouragement Upon extending fingers from a closed fist, there is visible and palpable locking and catching of the right index finger, middle finger, and ring finger, with ring finger locking in place and needing to be manually released by the provider. There is also visible and palpable locking and catching of the left middle, ring, and small fingers. Skin: No lacerations or abrasions. General: No ecchymosis, erythema, or evidence of infection. Psych: Appears grossly normal Affect normal Attitude cooperative Psych Appearance: grossly normal Mental Status: mental status grossly normal Assessment & Plan Assessment & Plan (1) Trigger index finger of right hand: Code(s): M65.321 - Trigger finger, right index finger Category: Medical (2) Trigger finger, right middle finger: Code(s): M65.331 - Trigger finger, right middle finger Category: Medical (3) Trigger ring finger of right hand: Code(s): M65.341 - Trigger finger, right ring finger Category: Medical (4) Trigger middle finger of left hand: Code(s): M65.332 - Trigger finger, left middle finger Category: Medical (5) Trigger ring finger of left hand: Code(s): M65.342 - Trigger finger, left ring finger Category: Medical (6) Trigger finger, left little finger: Code(s): M65.352 - Trigger finger, left little finger Category: Medical Plan 1. Trigger fingers of right index and ring finger Patient identifies these 2 trigger fingers as the most bothersome at this time At this time, after consultation with Dr. Bello, surgical intervention is indicated in this patient at this time Patient would like to proceed with surgical treatment of these 2 trigger fingers Patient understands that we typically will not perform trigger finger releases on more than 2 fingers at one given time, particularly with the patient's history of smoking. I educated the patient about the condition. I discussed both operative and nonoperative treatment options. The patient would like to proceed with surgery. The risks and benefits of operative treatment were discussed with the patient and the patient wishes to proceed with surgery. These risks include, but are not limited to, risk of damage to blood vessels, nerves, tendons, infection, recurrence, incomplete relief of preoperative symptoms, persistent pain, possible need for further surgery, and the risks associated with regional blocks and/or anesthesia. Plan is to take the patient to the operating room at some point in the next few weeks for the following procedures: 1. Right index finger trigger finger release 2. Right ring finger trigger finger release All of the preoperative paperwork including the consent was discussed today. All of the patient's questions were answered in the clinic today. The patient understands that they will be in contact with our surgical technology instructor to discuss scheduling their procedure. Patient expresses concern about timeframe, as she will be uninsured when she retires later this year. Patient is informed that we are booking into June or July, but is told that she can be put on the short notice list if we ever have a day or week where fracture or trauma time is not needed. Patient denies diabetes, blood thinners, asthma, heart issues, lung issues, kidney issues Patient currently smokes, and is educated about the potential risks of smoking in the setting of surgery, such as issues with healing. Patient understands these risk factors and agrees to surgery. 2. Trigger fingers of right middle finger, middle finger, left ring finger, left small finger Patient is interested in pursuing treatment for her right index and ring fingers at this time Patient will discuss further treatment options for other trigger fingers at postop appointments for scheduled trigger finger release. Patient will follow-up in clinic 2 weeks after her procedure, sooner with any acute concerns. Coding Level of Care Code New Pt Level 5 (93922) Diagnoses Trigger index finger of right hand M65.321 Trigger finger, right middle finger M65.331 Trigger ring finger of right hand M65.341 Trigger middle finger of left hand M65.332 Trigger ring finger of left hand M65.342 Trigger finger, left little finger M65.352
[2024-05-03 10:40] VITALS: BMI 31.6
== END 2024-05-03 12:12 | disposition home or self-care (01) ==
PROVIDERS: PCP Nurse Practitioner Primary Care
DX: M65.321 Trigger finger, right index finger (principal); M65.331 Trigger finger, right middle finger; M65.341 Trigger finger, right ring finger; M65.332 Trigger finger, left middle finger; M65.342 Trigger finger, left ring finger; M65.352 Trigger finger, left little finger
CPT/HCPCS: 99204

== ENCOUNTER → 2024-05-03 10:27 | Outpatient (BNVA) | payer OTHER, SELFPAY | PROVIDERS: PCP Nurse Practitioner Primary Care ==

== ENCOUNTER 2024-06-16 10:13 | Day surgery (SDC) | payer OTHER, SELFPAY ==
[2024-06-16 11:03] VITALS: BMI 30.8
--- NOTE | 2024-06-16 11:19 | MHC.SHP ---
Pre-Procedural Eval Section A - 24 Hr Update-Section A only Date of Service: 06/16/24 The patient is an INPATIENT: No Changes since office visit: No Cold of Flu in the past 2 weeks, No New Medical Problems, No Changes in Medication and No Patient answered all questions The patient has been examined within 24 hours of the surgical procedure. The History & Physical has been completed within 30 days and I have reviewed it.: Yes Section B - Complete if H&P > 30 days Chief Complaint: Trigger finger, right index finger Allergies: Allergies Allergy/AdvReac Type Severity Reaction Status Date / Time bupropion [From Wellbutrin] Allergy Severe hyperactivi Verified 05/03/24 10:36 ty levofloxacin [Levaquin] Allergy Severe muscle Verified 05/03/24 10:36 aches latex Allergy Intermediate Rash Verified 05/03/24 10:36 Plan I have reviewed the history and physical and performed a pertinent physical examination on my patient. No changes have occurred unless specified. Time Spent With Patient Time: Total time managing care of this patient today ____ minutes.
--- NOTE | 2024-06-16 11:20 | W.PM.OPN ---
Operative Note Operative Note Date of Service: 06/16/24 Narrative: Operative Note Preop diagnosis: 1. Right index finger Trigger finger 2. Right ring finger trigger finger Postop diagnosis: Same Procedure: 1. Right index finger A1 tanisha release 2. Right ring finger A1 tanisha release Surgeon: Fátima Bello MD Sales And Marketing Manager: Anam COY Anesthesia: local block using 1% lidocaine with epinephrine Findings: No locking or catching after A1 tanisha releases EBL: Less than 5 mL Tourniquet time: None Specimens: None Complications: None Disposition: Brought to recovery room in stable condition Plan: Follow-up for 10-14 days for wound check and suture removal Indications: The patient is a 64 years old, with right index finger and ring finger trigger fingers that have been unresponsive to nonoperative management. The risks and benefits of operative treatment including but not limited to risk of damage to blood vessels, nerves, tendons, infection, persistent pain, persistent symptoms, recurrence or possible need for additional surgery were discussed with the patient and the patient wishes to proceed with surgery. Procedure: Once consent was obtained a local block was performed in the preop area using a combination of 1% lidocaine with epinephrine. The patient was then brought back to the operating suite and placed on the operative table in supine position. The right upper extremity was prepped and draped in a standard surgical fashion. Once assured that we had a good block, a 1.5 cm oblique incision was made centered over the A1 tanisha of the right index finger . The incision was made through the skin to the subcutaneous tissues using a #15 blade. Careful dissection was made down to the level of the A1 tanisha using tenotomy scissors, with care being taken to protect the nearby neurovascular structures. A longitudinal incision was made in the A1 tanisha 1st using a #15 blade, then using tenotomy scissors under direct visualization. The A1 tanisha was noted to be thickened. Following our A1 tanisha release, we no longer saw any locking or catching of the digit with flexion and extension. Once assured that we had a good block, a 1.5 cm oblique incision was made centered over the A1 tanisha of the right ring finger . The incision was made through the skin to the subcutaneous tissues using a #15 blade. Careful dissection was made down to the level of the A1 tanisha using tenotomy scissors, with care being taken to protect the nearby neurovascular structures. A longitudinal incision was made in the A1 tanisha 1st using a #15 blade, then using tenotomy scissors under direct visualization. The A1 tanisha was noted to be thickened. Following our A1 tanisha release, we no longer saw any locking or catching of the digit with flexion and extension. Once satisfied with our A1 tanisha release the wound was copiously irrigated with normal saline and hemostasis was obtained with a brief period of local pressure. The skin edges were reapproximated with some 5.0 nylon suture material and a sterile dressing was applied. The patient appears to have tolerated the procedure well and with no complications. All digits were well vascularized at the conclusion of the case.
--- NOTE | 2024-06-16 12:03 | MHC.SHP ---
Pre-Procedural Eval Section A - 24 Hr Update-Section A only Date of Service: 06/16/24 The patient is an INPATIENT: No Changes since office visit: No Cold of Flu in the past 2 weeks, No New Medical Problems, No Changes in Medication and No Patient answered all questions The patient has been examined within 24 hours of the surgical procedure. The History & Physical has been completed within 30 days and I have reviewed it.: Yes Section B - Complete if H&P > 30 days Chief Complaint: Trigger finger, right index finger and ring finger Allergies: Allergies Allergy/AdvReac Type Severity Reaction Status Date / Time bupropion [From Wellbutrin] Allergy Severe hyperactivi Verified 05/03/24 10:36 ty levofloxacin [Levaquin] Allergy Severe muscle Verified 05/03/24 10:36 aches latex Allergy Intermediate Rash Verified 05/03/24 10:36 Plan Diagnosis/Plan: Unchanged I have reviewed the history and physical and performed a pertinent physical examination on my patient. No changes have occurred unless specified. Time Spent With Patient Time: Total time managing care of this patient today ____ minutes.
[2024-06-16 12:51] VITALS: BP 145/84; PULSE 82; RESP 16; O2SAT 95
== END 2024-06-16 12:53 | disposition home or self-care (01) ==
PROVIDERS: PCP Nurse Practitioner Primary Care; Visit Provider Orthopaedic Surgery
PROC: (CPT 26055; principal; 2024-06-16 12:00)
DX: M65.321 Trigger finger, right index finger (principal); M65.341 Trigger finger, right ring finger; I10 Essential (primary) hypertension; E78.5 Hyperlipidemia, unspecified; Z79.02 Long term (current) use of antithrombotics/antiplatelets; Z79.899 Other long term (current) drug therapy
CPT/HCPCS: 26055 ×2; J0171

== ENCOUNTER → 2024-06-16 10:13 | Outpatient (BNV) | payer OTHER, SELFPAY | PROVIDERS: PCP Nurse Practitioner Primary Care; Visit Provider Orthopaedic Surgery | DX: M65.321 Trigger finger, right index finger (principal); M65.341 Trigger finger, right ring finger | CPT/HCPCS: 26055 ==

== ENCOUNTER 2024-06-28 13:36 | Outpatient (AMB) | payer OTHER, SELFPAY ==
--- NOTE | 2024-06-28 13:39 | A.OFFVIS_ITS ---
Vital Signs 06/28/24 13:40 Height 5 ft 1 in Weight 163 lb BMI 30.8 Intake Visit Reasons: PO RT IF and RF trigger 06/16/24 AR Intake Note: Ondina is a 64 yo 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 female who presents today post- operatively s/p right index and right ring finger trigger release done 06/16/[address] Bello. Patient denies numbness and tingling. Denies locking on fingers. Patient reports she has no concerns today. Stitches removed in office and steri strips applied. Allergies bupropion [From Wellbutrin] Allergy (Severe, Verified 06/28/24 13:50) hyperactivity levofloxacin [Levaquin] Allergy (Severe, Verified 06/28/24 13:50) muscle aches latex Allergy (Intermediate, Verified 06/28/24 13:50) Rash HPI HPI PO RT IF and RF trigger 06/16/24 AR: Details: Ondina is a 64 year old 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 woman who presents S/P right index & ring finger trigger release, DOS: 06/16/24. She says she is doing well and no longer has any locking or catching of these fingers. She has a right middle trigger finger, as well as left middle, ring, and small finger trigger fingers. These are not bothering her much at present. 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 [facility] Medical History Frozen shoulder Bursitis of both hips COVID-19 vaccine series completed Arthritis Depression Elevated cholesterol HTN (hypertension) Surgical History History of bunionectomy Hx of tonsillectomy H/O colonoscopy Hx of arthroscopic knee surgery Hx of arthroscopy of knee Hx of cervical discectomy Hx of hand surgery Family History Father Hypertension Heart attack Mother Hypertension Stroke Social History Housing: House Are you a primary animal care worker to a significant other at home: No Do you presently have visiting nurse or other home services: No Comment: counts correct Patient Tobacco Use Status: Current everyday Tobacco user Tobacco use type: Cigarette Cigarettes Per Day: 10 Years Smoked: 42 e-Cigarette/Vaping Use: Never Used service: No Current occupational status: employed 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 Sutures removed and Steri-Strips applied She can make a fist and extend all her digits No locking of the index or ring fingers of the right hand Sensation is intact Cap refill is brisk Psych Appearance: grossly normal Affect: normal affect Attitude: cooperative Assessment & Plan Assessment & Plan (1) Trigger index finger of right hand: Code(s): M65.321 - Trigger finger, right index finger Category: Medical (2) Trigger ring finger of right hand: Code(s): M65.341 - Trigger finger, right ring finger Category: Medical (3) Trigger finger, right middle finger: Code(s): M65.331 - Trigger finger, right middle finger Category: Medical (4) Trigger middle finger of left hand: Code(s): M65.332 - Trigger finger, left middle finger Category: Medical (5) Trigger ring finger of left hand: Code(s): M65.342 - Trigger finger, left ring finger Category: Medical (6) Trigger finger, left little finger: Code(s): M65.352 - Trigger finger, left little finger Category: Medical Plan Assessment & Plan: 1. Right index finger trigger finger, S/P release DOS: 06/16/24 2. Right ring finger trigger finger, S/P release DOS: 06/16/24 The patient appears to be doing well post-operatively I educated her about the post-operative course I explained the signs and symptoms of infection I discussed activity modifications, she is to lift nothing heavier than a cellphone for the next two weeks She will perform gentle ROM exercises at home She should avoid any underwater activities for the next 5 days She should gently massage about the incision site to reduce the risk of hypersensitivity She works at [employer]. She was given a note to return to work on 07/11/24, on light duty, with a 2lb weight limit with her right hand and no opening jars or bottles for the next 2 weeks. She will return to full duty on 07/25/24 She can follow up prn 3. Right middle finger trigger finger 4. Left middle finger trigger finger 5. Left ring finger trigger finger 6. Left small finger trigger finger Not particularly bothersome for her at this time She would like to wait to discuss treatment options when she has recovered from surgery Scribed for Fátima Bello MD by Ramon Wilkerson, biomedical field service engineer, on 06/28/24 at 1:55 PM, EST. Coding Level of Care Code Global (99468) Diagnoses Trigger index finger of right hand M65.321 Trigger ring finger of right hand M65.341 Trigger finger, right middle finger M65.331 Trigger middle finger of left hand M65.332 Trigger ring finger of left hand M65.342 Trigger finger, left little finger M65.352
[2024-06-28 13:40] VITALS: BMI 30.8
== END 2024-06-28 14:01 | disposition home or self-care (01) ==
PROVIDERS: PCP Nurse Practitioner Primary Care; Visit Provider Orthopaedic Surgery
DX: M65.321 Trigger finger, right index finger (principal); M65.341 Trigger finger, right ring finger; M65.331 Trigger finger, right middle finger; M65.332 Trigger finger, left middle finger; M65.342 Trigger finger, left ring finger; M65.352 Trigger finger, left little finger
CPT/HCPCS: 99024

== ENCOUNTER → 2024-06-28 13:36 | Outpatient (BNVA) | payer OTHER, SELFPAY | PROVIDERS: PCP Nurse Practitioner Primary Care; Visit Provider Orthopaedic Surgery ==

== ENCOUNTER 2024-08-10 13:09 | Outpatient (AMB) | payer OTHER, SELFPAY ==
--- NOTE | 2024-08-10 13:10 | A.OFFVIS_ITS ---
Vital Signs 08/10/24 13:15 Height 5 ft 1 in Weight 163 lb BMI 30.8 Intake Visit Reasons: NewProb- LT middle finger trigger Intake Note: Ondina is a 64 yo 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 female who presents today with a new problem of LEFT middle and ring finger trigger. Patient denies numbness or tingling. She has been taking Motrin PRN with minimal relief. Patient would like to discuss trigger release today. Hx of RT IF and RF trigger 06/16/24 AR. Allergies bupropion [From Wellbutrin] Allergy (Severe, Verified 08/10/24 13:15) hyperactivity levofloxacin [Levaquin] Allergy (Severe, Verified 08/10/24 13:15) muscle aches latex Allergy (Intermediate, Verified 08/10/24 13:15) Rash HPI HPI NewProb- LT middle finger trigger: Details: Ondina is a 64 year old 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 woman who returns to discuss her multiple trigger fingers. She is S/P right index & ring finger trigger release, DOS: 06/16/24. She says they are doing well. She has a right middle trigger finger, as well as left middle, ring, and small finger trigger fingers. She says they are worsening. Her chief complaint is of her left middle & ring fingers locking today. 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 She says she is retiring soon. [facility] Medical History Frozen shoulder Bursitis of both hips COVID-19 vaccine series completed Arthritis Depression Elevated cholesterol HTN (hypertension) Surgical History History of bunionectomy Hx of tonsillectomy H/O colonoscopy Hx of arthroscopic knee surgery Hx of arthroscopy of knee Hx of cervical discectomy Hx of hand surgery Family History Father Hypertension Heart attack Mother Hypertension Stroke Social History Housing: House Are you a primary urgent care technician to a significant other at home: No Do you presently have visiting nurse or other home services: No Comment: counts correct Patient Tobacco Use Status: Current everyday Tobacco user Tobacco use type: Cigarette Cigarettes Per Day: 10 Years Smoked: 42 e-Cigarette/Vaping Use: Never Used service: No Current occupational status: employed Current occupation: [employer], 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 Cognitive needs: No Hearing needs: No Vision needs: Yes Female Reproductive History Menstrual Age of Menarche: 13 Review of Systems Const All systems reviewed & are unremarkable except as noted in HPI and below Physical Exam Vital Signs: BMI result Body Mass Index 30.8 Const General: no acute distress and alert Orientation/consciousness: patient oriented x3 Neuro General: patient oriented x3 Extrem Other: Evaluation of Bilateral Upper Extremity: The patient is alert, oriented, and in no acute distress Neuro: Median, Ulnar, Radial nerves motor and sensory intact and sensation is normal to the tips of all digits Vascular: Cap refill brisk ROM: She can make a fist and extend all her digits Visible and palpable locking and catching of the left middle, ring, Tender over the a1 pulleys On the right hand she can make a fist and extend all of her digits and has no locking or catching. All wounds are well healed Psych Appearance: grossly normal Affect: normal affect Attitude: cooperative Assessment & Plan Assessment & Plan (1) Trigger middle finger of left hand: Code(s): M65.332 - Trigger finger, left middle finger Category: Medical (2) Trigger finger, right middle finger: Code(s): M65.331 - Trigger finger, right middle finger Category: Medical (3) Trigger ring finger of left hand: Code(s): M65.342 - Trigger finger, left ring finger Category: Medical (4) Trigger finger, left little finger: Code(s): M65.352 - Trigger finger, left little finger Category: Medical Plan Assessment & Plan: 1. Left middle finger trigger finger This is her chief complaint today 2. Left ring finger trigger finger I educated her about this condition I discussed operative and non-operative treatment options The patient would like to proceed with surgery The risks and benefits of operative treatment were discussed with the patient and the patient wishes to proceed with surgery. These risks include, but are not limited to risk of damage to blood vessels, nerves, tendons, infection, recurrence, incomplete relief of preoperative symptoms, persistent pain, possible need for further surgery and the risks associated with regional blocks and anesthesia. The plan is to take the patient to the operating room sometime in the next few weeks for the following procedures: 1. Left middle finger trigger release, under local 2. Left ring finger trigger release, under local All of the preoperative paperwork including the consent was reviewed today. All the patient's questions were answered. The patient understands that they will be contacted by our chemical laboratory assistant soon to schedule this procedure She denies Diabetes, blood thinners, asthma, heart, lung, kidney issues 3. Left small finger trigger finger 4. Right middle finger trigger finger These are not problematic at this time. We can discuss treatment options whens he has recovered from surgery. 5. Right index finger trigger finger, S/P release DOS: 06/16/24 6. Right ring finger trigger finger, S/P release DOS: 06/16/24 Resolved Scribed for Fátima Bello MD by Ramon Wilkerson, biomedical engineering technologist, on 08/10/24 at 1:25 PM, EST. Scribe Plan - Not visible on output: Scribed for Fátima Bello MD by Ramon Wilkerson, biomedical engineering technologist, on [ ] at [ ], EST. Coding Level of Care Code Est Pt Level 4 (71800) Diagnoses Trigger middle finger of left hand M65.332 Trigger finger, right middle finger M65.331 Trigger ring finger of left hand M65.342 Trigger finger, left little finger M65.352
[2024-08-10 13:15] VITALS: BMI 30.8
== END 2024-08-10 13:28 | disposition home or self-care (01) ==
PROVIDERS: PCP Nurse Practitioner Primary Care; Visit Provider Orthopaedic Surgery
DX: M65.332 Trigger finger, left middle finger (principal); M65.331 Trigger finger, right middle finger; M65.342 Trigger finger, left ring finger; M65.352 Trigger finger, left little finger
CPT/HCPCS: 99214

== ENCOUNTER → 2024-08-10 13:09 | Outpatient (BNVA) | payer OTHER, SELFPAY | PROVIDERS: PCP Nurse Practitioner Primary Care; Visit Provider Orthopaedic Surgery ==

== ENCOUNTER 2024-10-03 07:00 | Day surgery (SDC) | payer OTHER, SELFPAY ==
[2024-10-02 12:00] VITALS: BMI 31.2
[2024-10-03 07:06] VITALS: BP 144/76; PULSE 78; RESP 18; TEMP 36.6; O2SAT 97
--- NOTE | 2024-10-03 08:26 | MHC.SHP ---
Pre-Procedural Eval Section A - 24 Hr Update-Section A only Date of Service: 10/03/24 The patient is an INPATIENT: No Changes since office visit: No Cold of Flu in the past 2 weeks, No New Medical Problems, No Changes in Medication and No Patient answered all questions The patient has been examined within 24 hours of the surgical procedure. The History & Physical has been completed within 30 days and I have reviewed it.: Yes Section B - Complete if H&P > 30 days Chief Complaint: middle and ring finger trigger finger release Allergies: Allergies Allergy/AdvReac Type Severity Reaction Status Date / Time bupropion [From Wellbutrin] Allergy Severe hyperactivi Verified 08/10/24 13:15 ty levofloxacin [Levaquin] Allergy Severe muscle Verified 08/10/24 13:15 aches latex Allergy Intermediate Rash Verified 08/10/24 13:15 Plan Diagnosis/Plan: Unchanged I have reviewed the history and physical and performed a pertinent physical examination on my patient. No changes have occurred unless specified. Time Spent With Patient Time: Total time managing care of this patient today ____ minutes.
--- NOTE | 2024-10-03 08:30 | W.PM.OPN ---
Operative Note Operative Note Date of Service: 10/03/24 Narrative: Operative Note Preop diagnosis: 1. Left middle finger Trigger finger 2. Left ring finger trigger finger Postop diagnosis: Same Procedure: 1. Left middle finger A1 tanisha release 2. Left ring finger A1 tanisha release Surgeon: Fátima Bello MD Coat Room Attendant: None Anesthesia: local block using 1% lidocaine with epinephrine Findings: No locking or catching after A1 tanisha release EBL: Less than 5 mL Tourniquet time: None Specimens: None Complications: None Disposition: Brought to recovery room in stable condition Plan: Follow-up for 10-14 days for wound check and suture removal Indications: The patient is 64 years old, with left middle finger and ring finger trigger fingers that have been unresponsive to nonoperative management. The risks and benefits of operative treatment including but not limited to risk of damage to blood vessels, nerves, tendons, infection, persistent pain, persistent symptoms, recurrence or possible need for additional surgery were discussed with the patient and the patient wishes to proceed with surgery. Procedure: Once consent was obtained a local block was performed in the preop area using a combination of 1% lidocaine with epinephrine. The patient was then brought back to the operating suite and placed on the operative table in supine position. The left upper extremity was prepped and draped in a standard surgical fashion. Once assured that we had a good block, a 1.5 cm oblique incision was made centered over the A1 tanisha of the left middle finger . The incision was made through the skin to the subcutaneous tissues using a #15 blade. Careful dissection was made down to the level of the A1 tanisha using tenotomy scissors, with care being taken to protect the nearby neurovascular structures. A longitudinal incision was made in the A1 tanisha 1st using a #15 blade, then using tenotomy scissors under direct visualization. The A1 tanisha was noted to be thickened. Following our A1 tanisha release, we no longer saw any locking or catching of the digit with flexion and extension. Once assured that we had a good block, a 1.5 cm oblique incision was made centered over the A1 tanisha of the left ring finger . The incision was made through the skin to the subcutaneous tissues using a #15 blade. Careful dissection was made down to the level of the A1 tanisha using tenotomy scissors, with care being taken to protect the nearby neurovascular structures. A longitudinal incision was made in the A1 tanisha 1st using a #15 blade, then using tenotomy scissors under direct visualization. The A1 tanisha was noted to be thickened. Following our A1 tanisha release, we no longer saw any locking or catching of the digit with flexion and extension. Once satisfied with our A1 tanisha release the wound was copiously irrigated with normal saline and hemostasis was obtained with a brief period of local pressure. The skin edges were reapproximated with some 5.0 nylon suture material and a sterile dressing was applied. The patient appears to have tolerated the procedure well and with no complications. All digits were well vascularized at the conclusion of the case.
[2024-10-03 09:49] VITALS: BP 147/81; PULSE 76; RESP 20; O2SAT 96
== END 2024-10-03 09:52 | disposition home or self-care (01) ==
PROVIDERS: PCP Internal Medicine; Visit Provider Orthopaedic Surgery
PROC: (CPT 26055; principal; 2024-10-03 08:10)
DX: M65.332 Trigger finger, left middle finger (principal); M65.342 Trigger finger, left ring finger; M19.90 Unspecified osteoarthritis, unspecified site; M70.72 Other bursitis of hip, left hip; M70.71 Other bursitis of hip, right hip; I10 Essential (primary) hypertension; Z91.040 Latex allergy status; Z88.8 Allergy status to other drugs, medicaments and biological substances; Z88.1 Allergy status to other antibiotic agents; E78.00 Pure hypercholesterolemia, unspecified; Z98.890 Other specified postprocedural states; F17.210 Nicotine dependence, cigarettes, uncomplicated
CPT/HCPCS: 26055 ×2; J0171; J2003

== ENCOUNTER → 2024-10-03 07:00 | Outpatient (BNV) | payer OTHER, SELFPAY | PROVIDERS: PCP Internal Medicine; Visit Provider Orthopaedic Surgery | DX: M65.332 Trigger finger, left middle finger (principal); M65.342 Trigger finger, left ring finger | CPT/HCPCS: 26055 ==

== ENCOUNTER 2024-10-18 14:15 | Outpatient (AMB) | payer OTHER, SELFPAY ==
--- NOTE | 2024-10-18 14:21 | MHC.OFFVIS ---
Vital Signs 10/18/24 14:22 Height 5 ft 1 in Weight 165 lb BMI 31.2 Intake Visit Reasons: PO LT MF/RF triggers 10/03/24 AR Intake Note: Ondina 64 yr old female presents today for her PO LT MF/RF triggers release DOS 10/03/24 AR. Sutures removed in office and steri strips applied. States locking has resolved and however she is not able to fully extend her middle and ring finger fully. Allergies bupropion [From Wellbutrin] Allergy (Severe, Verified 10/18/24 14:23) hyperactivity levofloxacin [Levaquin] Allergy (Severe, Verified 10/18/24 14:23) muscle aches latex Allergy (Intermediate, Verified 10/18/24 14:23) Rash HPI HPI PO LT MF/RF triggers 10/03/24 AR: Details: Ondina is a 64 year old 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 woman who returns S/P left middle & ring finger trigger release, DOS: 10/03/24. She is S/P right index & ring finger trigger release, DOS: 06/16/24. She says they are doing well. She says she is doing well overall, and no longer has any locking or catching. She has a right middle and left small finger trigger fingers. She says they are worsening. 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 She says she is retiring soon. [facility] Medical History (Updated 10/13/24 @ 16:22 by Orin Gomes MD) Essential hypertension Frozen shoulder Bursitis of both hips COVID-19 vaccine series completed Arthritis Depression Elevated cholesterol HTN (hypertension) Surgical History History of bunionectomy Hx of tonsillectomy H/O colonoscopy Hx of arthroscopic knee surgery Hx of arthroscopy of knee Hx of cervical discectomy Hx of hand surgery Family History Father Hypertension Heart attack Mother Hypertension Stroke Social History Housing: House Are you a primary personal care home administrator to a significant other at home: No Do you presently have visiting nurse or other home services: No Comment: counts correct Patient Tobacco Use Status: Current everyday Tobacco user Tobacco use type: Cigarette Cigarettes Per Day: 10 Years Smoked: 42 e-Cigarette/Vaping Use: Never Used service: No Current occupational status: employed 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 Sutures removed and Steri-Strips applied She can bring her fingers closed to a fist and back into extension No locking or catching Sensation is intact to the radial and ulnar nerve distributions of both fingers. Cap refill is brisk Psych Appearance: grossly normal Affect: normal affect Attitude: cooperative Assessment & Plan Assessment & Plan (1) Trigger middle finger of left hand: Code(s): M65.332 - Trigger finger, left middle finger Category: Medical (2) Trigger finger, right middle finger: Code(s): M65.331 - Trigger finger, right middle finger Category: Medical (3) Trigger ring finger of left hand: Code(s): M65.342 - Trigger finger, left ring finger Category: Medical (4) Trigger finger, left little finger: Code(s): M65.352 - Trigger finger, left little finger Category: Medical Plan Assessment & Plan: 1. Left middle finger trigger finger, S/P release DOS: 10/03/24 2. Left ring finger trigger finger, S/P release DOS: 10/03/24 The patient appears to be doing well post-operatively I educated her about the post-operative course I explained the signs and symptoms of infection, if the patient develops any new or worsening erythema, drainage, pain, or warmth they should contact the clinic or attend the ED. I discussed activity modifications, she is to lift nothing heavier than a cellphone for the next two weeks She will perform gentle ROM exercises at home She should avoid any underwater activities for the next 5 days She should gently massage about the incision site to reduce the risk of hypersensitivity She was given a note for work to return to full duty on 10/31/24 She can follow up prn 3. Left small finger trigger finger 4. Right middle finger trigger finger These are not problematic at this time. We can discuss treatment options whens he has recovered from surgery. 5. Right index finger trigger finger, S/P release DOS: 06/16/24 6. Right ring finger trigger finger, S/P release DOS: 06/16/24 Resolved Scribed for Fátima Bello MD by Ramon Wilkerson, administrative medical director, on 10/18/24 at 2:40 PM, EST. Scribe Plan - Not visible on output: Scribed for Fátima Bello MD by Ramon Wilkerson administrative medical director, on [ ] at [ ], EST. Coding Level of Care Code Global (50079) Diagnoses Trigger middle finger of left hand M65.332 Trigger finger, right middle finger M65.331 Trigger ring finger of left hand M65.342 Trigger finger, left little finger M65.352
[2024-10-18 14:22] VITALS: BMI 31.2
== END 2024-10-18 14:45 | disposition home or self-care (01) ==
PROVIDERS: PCP Nurse Practitioner Primary Care; Visit Provider Orthopaedic Surgery
DX: M65.332 Trigger finger, left middle finger (principal); M65.331 Trigger finger, right middle finger; M65.342 Trigger finger, left ring finger; M65.352 Trigger finger, left little finger
CPT/HCPCS: 99024

== ENCOUNTER 2024-12-14 08:06 | Outpatient (AMB) | payer OTHER, SELFPAY ==
[2024-12-14 08:16] VITALS: BP 120/70; PULSE 79; RESP 16; TEMP 36.3; O2SAT 97; BMI 30.4
--- NOTE | 2024-12-14 08:16 | A.OFFPC_ITS ---
Vital Signs 12/14/24 08:16 Height 5 ft 1 in Weight 161 lb BMI 30.4 BP 120/70 Blood Pressure Location Lt brachial Position Sitting Respiration 16 Pulse 79 Pulse Source Pulse Oximeter Temp 97.3 F Temp Source Oral Pulse Oximetry (%) 97 Oxygen Delivery Method Room Air Intake Visit Reasons: Transfer from [address] HTN/ Anxiety Intake Note: Pt is here today transfer from [facility] HTN and Anxiety Allergies bupropion [From Wellbutrin] Allergy (Severe, Verified 12/14/24 08:52) hyperactivity levofloxacin [Levaquin] Allergy (Severe, Verified 12/14/24 08:52) muscle aches latex Allergy (Intermediate, Verified 12/14/24 08:52) Rash Medication List - Last Reconciled 12/14/24 by Orin Gomes MD atorvastatin 40 mg PO BEDTIME [calcium 600 mg daily] cyclobenzaprine 10 mg PO BEDTIME PRN diclofenac sodium 75 mg PO BID diclofenac sodium 1% (Arthritis Pain (diclofenac)) 2 grams topical QID fenofibrate 160 mg PO DAILY hydrochlorothiazide 25 mg PO DAILY losartan 100 mg PO DAILY multivitamin 1 tab PO DAILY omeprazole magnesium (Prilosec OTC) 20 mg PO DAILY PRN sertraline 100 mg PO BEDTIME 3 months valacyclovir 2 tabs PO Q12H PRN Tobacco use date assessed: 12/14/24 Dental Screening Dental Screen Date: 12/14/24 Did you have a dental visit in the last 12 months?: Yes Did you have a dental problem in the last 6 months where you did not have access to dental care?: No Was dental information given to patient?: Patient has dentist HPI Transfer from [address] HTN/ Anxiety HPI Details 64-year-old lady, new to me, here to [facility] with new PCP. She has history of dyslipidemia, currently on atorvastatin and fenofibrate, has hypertension currently on hydrochlorothiazide and losartan and takes sertraline for anxiety disorder. Review of last fasting labs showed lipids are within normal limits, but her vitamin-D is deficient . She is only taking vitamin-D 3 supplement 1000 units daily. 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 [facility] Medical History (Updated 12/14/24 @ 09:13 by Orin Gomes MD) History of cold sores Vitamin D deficiency Mixed dyslipidemia Generalized anxiety disorder Essential hypertension Frozen shoulder Bursitis of both hips COVID-19 vaccine series completed Arthritis Depression Elevated cholesterol HTN (hypertension) Surgical History History of bunionectomy Hx of tonsillectomy H/O colonoscopy Hx of arthroscopic knee surgery Hx of arthroscopy of knee Hx of cervical discectomy Hx of hand surgery Family History Father Hypertension Heart attack Mother Hypertension Stroke Social History Housing: House Are you a primary animal daycare provider to a significant other at home: No Do you presently have visiting nurse or other home services: No Comment: counts correct Patient Tobacco Use Status: Current everyday Tobacco user Tobacco use type: Cigarette Cigarettes Per Day: 10 Years Smoked: 42 e-Cigarette/Vaping Use: Never Used service: No Current occupational status: employed Current occupation: [employer], 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 1. Little interest or pleasure in doing things: not at all 2. Feeling down, depressed, or hopeless: not at all 3. Trouble falling or staying asleep, or sleeping too much: not at all 4. Feeling tired or having little energy: not at all 5. Poor appetite or overeating: not at all 6. Feeling bad about yourself - or that you are a failure or have let yourself or your family down: not at all 7. Trouble concentrating on things, such as reading the newspaper or watching television: not at all 8. Moving or speaking so slowly that other people could have noticed. Or the opposite - being so fidgety or restless that you have been moving around a lot more than usual: not at all 9. Thoughts that you would be better off or of hurting yourself in some way: not at all Total score: 0 Depression Screening Interpretation: Negative Depression Screening Done: Yes 05322 - PHQ-9 Billing: Yes Source: Developed by Drs. Dario Ley, Jammie Medina, Ryder Baker and colleagues, with an educational tala from [employer]. Thrive Questionnaire Date Thrive assessed: 12/14/24 I am a: Patient What is your living situation today?: I have a steady place to live Within the past 12 months, did the food you bought not last and you didn't have the money to get more?: I choose not to answer this question Within the past 12 months, did you worry whether your food would run out before you got money to buy more?: I choose not to answer this question Do you have trouble paying for medicines?: No Do you have trouble getting transportation to medical appointments?: No Do you have trouble paying your heating and electricity bill?: I choose not to answer this question Do you have trouble taking care of your child, family member or friend?: No Do you have trouble with day-to-day activities such as bathing, preparing meals, shopping, managing finances, etc.?: No Are you currently unemployed and looking for a job?: No Are you interested in more education?: No Please select the resources that you would like help with: None Currently or been in a relationship where the following occur: No concerns reported THRIVE Score: 0 AUDIT C Alcohol Use Questionnaire (AUDIT-C) 1. How often do you have a drink containing alcohol?: 2-3 times a week 2. How many drinks containing alcohol do you have on a typical day when you are drinking?: 1 or 2 3. How often do you have six or more drinks on one occasion?: Less than monthly Total Score: 4 JAVI-7 AMB Questionnaire JAVI-7 Date JAVI - 7 assessed: 12/14/24 Feeling nervous, anxious, or on edge: 0 = Not at all Not being able to stop or control worryin = Not at all Worrying too much about different things: 0 = Not at all Trouble relaxin = Several days Being so restless that it is hard to sit still: 0 = Not at all Becoming easily annoyed or irritable: 0 = Not at all Feeling afraid as if something awful might happen: 0 = Not at all Total JAVI-7 score (0-4 normal; 5-9 mild; 10-14 moderate; 15-21 severe): 1 Source: Developed by Drs. Dario Ley, Jammie Medina, Ryder Baker and colleagues, with an educational tala from [employer]. JAVI-7 Assessment Billing JAVI-7 Assessment Tool: JAVI-7 Assessment 26401 Review of Systems Const Denies fatigue, Denies fever(s), Denies headache(s), Denies weakness and Reports weight loss Eyes Details: Sees Dr. Vickers Denies change in vision ENT Denies dizziness, Denies headache(s) and Denies nasal congestion Card Denies chest pain, Denies lightheadedness, Denies palpitations and Denies dyspnea Resp Denies chest congestion, Denies cough, Denies dyspnea and Denies wheezing GI Denies abdominal pain, Denies change in bowel habits and Denies heartburn Denies hematuria, Denies urinary frequency, Denies dysuria and Denies urinary urgency Neuro Denies dizziness, Denies headache(s) and Denies weakness Psych Reports no additional complaints Endo Denies fatigue, Denies polydipsia, Denies polyuria and Denies palpitations Erick/Lymph Denies easy bruising Aller/Immun Denies seasonal rhinorrhea and Denies wheezing Physical exam (Primary Care) Vital Signs: Last Vital Signs Temp 97.3 F 12/14/24 08:16 Pulse 79 12/14/24 08:16 Resp 16 12/14/24 08:16 BP 120/70 12/14/24 08:16 Pulse Ox 97 12/14/24 08:16 Oxygen Delivery Method Room Air 12/14/24 08:16 BMI result Body Mass Index 30.4 Tobacco/Smoking Status: Tobacco use Status Tobacco use date assessed 12/14/24 12/14/24 08:23 Patient Tobacco Use Status Current everyday Tobacco 12/14/24 08:23 Tobacco use type Cigarette 12/14/24 08:23 e-Cigarette/Vaping Use Never Used 12/14/24 08:23 PHQ-9: PHQ-9 Score PHQ-9: Total score 0 12/14/24 08:57 Depression Screening Interpretation: Negative Thrive Assessment: Date of Thrive Assessment Date Thrive assessed 12/14/24 12/14/24 08:23 Currently or been in a relationship where the following occur: No concerns reported Const General: comfortable, no acute distress and alert Orientation/consciousness: patient oriented x3 HENMT Ears: external ears normal, TM's normal bilaterally and EAC's normal General nose exam: Normal external nose present and No nasal discharge present Mouth: Normal oral and palatal mucosa present, oropharynx normal and moist mucous membranes Eyes General: appearance normal, both eyes and all related structures Conjunctivae: conjunctivae normal Sclerae: sclerae normal Pupils: Equal, round and reactive pupils present EOM: EOMs intact bilaterally Neck Neck: Yes full ROM, Yes no lymphadenopathy and Yes supple Resp Effort & Inspection: normal respiratory effort and able to speak in complete sentences Auscultation: clear to auscultation bilaterally Cardio Rate: regular rate Rhythm: regular rhythm Heart sounds: S1 normal heart sound present and S2 normal heart sound present GI Palpation (GI): Soft to palpation, nontender and no masses Auscultation: normal bowel sounds Skin General skin exam: no rashes or lesions noted Neuro General: patient oriented x3, gait normal, tone normal, moves all extremities and no focal motor deficits Cranial nerves: Yes CN's II-XII intact bilaterally and Yes Equal, round and reactive pupils present Cognition (Neuro): normal cognition Extrem General: Yes full ROM, Yes no joint enlargement, Yes no clubbing, cyanosis or edema and Yes no calf tenderness Psych Appearance: grossly normal and well kempt Mental Status: mental status grossly normal Speech and movement: Normal speech and movement present Affect: normal affect Attitude: cooperative Thought process: Normal thought process present Thought content: Normal thought content present Coding Level of Care Code Est Pt Level 4 (64273) Complex EM visit Add On G2211 Diagnoses Essential hypertension I10 Muscle spasms of neck M62.838 Vitamin D deficiency E55.9 Mixed dyslipidemia E78.2 Generalized anxiety disorder F41.1 History of cold sores Z86.19 Additional Codes JAVI-7 Assessment Billing - JAVI-7 Assessment Tool: JAVI-7 Assessment 50185 ([id number]) PHQ-9 - 78391 - PHQ-9 Billing: Yes ([id number]) Assessment & Plan Assessment & Plan (1) Essential hypertension: Code(s): I10 - Essential (primary) hypertension Category: Medical Plan: Blood pressure at goal of less than 130/80. Continue with hydrochlorothiazide and losartan the same dose. Reinforced importance of following a low sodium diet, getting regular exercise, and lowering stress levels. (2) Muscle spasms of neck: Code(s): M62.838 - Other muscle spasm Category: Medical Plan: Refill sent for cyclobenzaprine 10 mg per tablet to take 1 tablet at bedtime as needed advised to try taking half a tablet to see if this will help. (3) Vitamin D deficiency: Code(s): E55.9 - Vitamin D deficiency, unspecified Category: Medical Plan: Will check another vitamin-D level and if deficient will start on high-dose supplementation (4) Mixed dyslipidemia: Code(s): E78.2 - Mixed hyperlipidemia Category: Medical Plan: Fasting lipid panel ordered, currently on fenofibrate and atorvastatin. Reinforced importance of following a low-cholesterol diet and getting regular exercise (5) Generalized anxiety disorder: Code(s): F41.1 - Generalized anxiety disorder Category: Medical Plan: Stable and controlled on sertraline 100 mg daily (6) History of cold sores: Code(s): Z86.19 - Personal history of other infectious and parasitic diseases Category: Medical Plan: Prescription sent for valacyclovir take 2 g every 12 hours for 1 day only as needed for cold sore, take medication right away at the 1st sign of recurrence Medications: Changed From valacyclovir 2 tabs PO Q12H PRN Cold Sores To valacyclovir 2,000 mg (2 x 1 gram) PO Q12H PRN 10 tabs 0RF Cold Sores Refilled cyclobenzaprine 10 mg PO BEDTIME PRN 90 tabs 0RF for muscle spasm
== END 2024-12-14 09:14 | disposition home or self-care (01) ==
PROVIDERS: PCP Internal Medicine; Visit Provider Internal Medicine
DX: I10 Essential (primary) hypertension (principal); M62.838 Other muscle spasm; E55.9 Vitamin D deficiency, unspecified; E78.2 Mixed hyperlipidemia; F41.1 Generalized anxiety disorder; Z86.19 Personal history of other infectious and parasitic diseases

== ENCOUNTER 2024-12-14 08:06 | Outpatient (REF) | payer OTHER, SELFPAY ==
[2024-12-14 11:43] LABS: Alanine Aminotransferase 15 U/L (0-31); Anion Gap 11 (12-20); Aspartate Amino Transferase 24 U/L (5-31); Blood Urea Nitrogen 15 mg/dL (9-16); Calcium 9.2 mg/dL (8.4-10.2); Carbon Dioxide 28 mmol/L (22-29); Chloride 105 mmol/L (96-108); Cholesterol 212 mg/dL (<200); Estimated Glomerular Filt Rate > 60; Glucose Fasting 87 mg/dL (60-99); HDL Cholesterol 65 mg/dL (>40); LDL Cholesterol Calculated 125 mg/dL (<100); Sodium 140 mmol/L (135-145); Triglycerides 113 mg/dL (<150)
[2024-12-14 12:01] LABS: Vitamin D 25-OH Total 19.3 ng/mL (>30)
== END 2024-12-14 08:07 | disposition home or self-care (01) ==
LOC: HO.HMGCLDS 08:06
PROVIDERS: PCP Internal Medicine; Visit Provider Internal Medicine
DX: I10 Essential (primary) hypertension (principal); Z78.0 Asymptomatic menopausal state; E78.5 Hyperlipidemia, unspecified; M62.838 Other muscle spasm; E55.9 Vitamin D deficiency, unspecified; E78.2 Mixed hyperlipidemia; F41.1 Generalized anxiety disorder; Z86.19 Personal history of other infectious and parasitic diseases
CPT/HCPCS: 36415; 80048; 80061; 82306; 84450; 84460; 96127

== ENCOUNTER 2025-06-13 09:17 | Outpatient (REF) | payer OTHER, SELFPAY ==
--- OUTSIDE RECORDS SUMMARY | 2025-06-13 09:51 | XMS_ITS | Encounter Summary ---
Author Organization [facility] Address [address] [place] [address] [place] [id number] Phone Care Team Providers Care Scooter Mechanic Name Role Phone Mai Borges NP Primary Care Provider [phone] Steve Vickers MD Unavailable Unknown, Unknown Primary Care Provider Ismael purvis Encounter Details Date Type Department Care Team (Late st Contact Info) Description 01/26/2024 Procedure Pass [facility] Admitting Dept Virtual Department [address] [place] [address] Social History Tobacco Use Types Packs/Day Years Used Date Smoking Tobacco: Every Day Cigarettes 0.5 47.6 Started: 1976 Smokeless Tobacco: Never Alcohol Use Standard Drinks/Week Comments Yes 14 (1 standard drink = 0.6 oz pu re alcohol) 2 glasses of wine per day Child or Family Care Answer Date Record ed Do you have problems with on e of the following making it difficult for you to work, study, or receive health care? No 08/26/2023 Education Answer Date Recorded Are you interested in help w ith more adult education (for example, completing high school, GED, job training, learning the Malay language, technical skills, or developing parenting skills)? No 08/26/2023 Are you concerned about learning? Not on file 08/26/2023 No 08/26/2023 Yes 08/26/2023 Food Answer Date Recorded Within the past 6 months we worried whether our food would run out before we got money to buy more. Never True 08/26/2023 Within the past 6 months the food we bought just didn't last and we didn't have enough money to get more. Never True Residential Stability Answer Date Recor ded What is your housing situation today? I have mateus brown 08/26/2023 How many times have you move d in the past 12 months? Zero (I did not move) 08/26/2023 Paying for Meds Answer Date Recorded Do you have trouble paying for medicines? No 08/26/2023 Paying Utility Bills Answer Date Record ed Do you have trouble paying your heating or elect ricity bill? No 08/26/2023 Transportation Answer Date Recorded Has the lack of transportati on kept you from medical appointments or from getting medications? No 08/26/2023 Unemployment Answer Date Recorded Are you currently unemployed or working on a part-time or temporary basis, and looking for work? No 09/04/2021 Digital Access Answer Date Recorded No 08/26/2023 Yes 08/26/2023 Do you have reliable internet access at home? Ye s 08/26/2023 Do you have a device (e.g., phone, tablet, computer) with a working camera? Yes 08/26/2023 Intimate Partner Violence Answer Date R ecorded Are you denied basic needs s uch as food, clothing, or medical care? No 01/26/2024 In the past 12 months have y ou been in a relationship with a person who hurts, threatens, or tries to control you? No 01/26/2024 Are you denied basic needs s uch as food, clothing, or medical care? No 01/26/2024 In the past 12 months have y ou been in a relationship with a person who hurts, threatens, or tries to control you? No 01/26/2024 Comments No Sex and Gender Information Value Date Recorded Sex Assigned at Female 06/04/2022 8:59 AM EDT Legal Sex Female 10:34 PM EDT Gender Identity Female 06/04/2022 8:59 AM EDT Sexual Orientation Straight 06/04/2022 8: 59 AM EDT documented as of this encounter Plan of Treatment Not on file documented as of this encounter Visit Diagnoses Not on filedocumented in this encounter Additional Health Concerns Assessment Noted Time PHQ-2 Depression Total Score: 0 08/26/20 23 9:48 AM EDT documented as of this encounter Care Teams Scooter Mechanic Relationship Specialty Start Date End Date Mai Borges, TILE CLASSIFIER [email or web address] PCP - General Family Medicine 12/21/17 01/26/24 Unknown, Unknown, MD PCP - General 01/27/24 Steve Vickers MD [address] [place] [address] [place] [address] Ophthalmology 06/05/21 documented as of this encounter Additional Source Comments The information contained in this document represents components of the legal health record. It is not the complete legal health record.[facility]
[2025-06-13 10:00] LABS: MANUAL DIFF FLAG NO
[2025-06-13 10:22] LABS: Hematocrit 39.2 % (37.0-47.0); Hemoglobin 12.9 g/dl (12.0-16.0); Imm Gran Abs Auto 0.04 X10*3/uL (0.00-0.03); Imm Gran Pct Auto 0.7 % (0.0-0.4); Lymphocytes Absolute Auto 1.7 X10*3/uL (1.2-4.9); Mean Corpuscular HGB Conc 32.9 g/dl (31.0-35.0); Mean Corpuscular Hemoglobin 30.0 pg (27.0-33.0); Mean Corpuscular Volume 91.2 fL (80.0-98.0); NRBC Abs Auto 0.000 X10*3/uL (0.0-0.012); NRBC Pct Auto 0.0 /100WBC (0.0-0.2); Platelet Count 278 X10*3/uL (160-400); Red Blood Count 4.30 X10*6/uL (4.20-5.50); White Blood Count 6.0 X10*3/uL (4.8-10.8)
[2025-06-13 11:27] LABS: Alanine Aminotransferase 17 U/L (0-31); Anion Gap 11 (12-20); Aspartate Amino Transferase 27 U/L (5-31); Blood Urea Nitrogen 13 mg/dL (9-16); Calcium 9.2 mg/dL (8.4-10.2); Carbon Dioxide 29 mmol/L (22-29); Chloride 106 mmol/L (96-108); Cholesterol 191 mg/dL (<200); Estimated Glomerular Filt Rate > 60; HDL Cholesterol 58 mg/dL (>40); Potassium 4.2 mmol/L (3.3-5.1); Sodium 142 mmol/L (135-145); Triglycerides 135 mg/dL (<150)
== END 2025-06-13 09:18 | disposition home or self-care (01) ==
LOC: HO.HMGCLDS 09:17
PROVIDERS: PCP Internal Medicine; Visit Provider Internal Medicine
DX: I10 Essential (primary) hypertension (principal); E78.2 Mixed hyperlipidemia; E55.9 Vitamin D deficiency, unspecified
CPT/HCPCS: 36415; 80048; 80061; 82306; 84450; 84460; 85025

== ENCOUNTER 2025-06-20 08:40 | Outpatient (AMB) | payer OTHER, SELFPAY ==
--- NOTE | 2025-06-20 09:03 | A.OFFPC_ITS ---
Vital Signs 06/20/25 09:09 Height 5 ft 1 in Weight 162 lb BMI 30.6 BP 128/70 Blood Pressure Location Lt brachial Position Sitting Respiration 17 Pulse 91 Pulse Source Pulse Oximeter Temp 97.9 F Temp Source Oral Pulse Oximetry (%) 97 Oxygen Delivery Method Room Air Intake Visit Reasons: PE Intake Note: Pt is here today for her PE: last papsmear 03/24/24 Allergies bupropion (From Wellbutrin) Allergy (Severe, Verified 06/20/25 09:33) hyperactivity levofloxacin (Levaquin) Allergy (Severe, Verified 06/20/25 09:33) muscle aches latex Allergy (Intermediate, Verified 06/20/25 09:33) Rash Medication List - Last Reconciled 06/20/25 by Orin Gomes MD atorvastatin 40 mg PO BEDTIME [calcium 600 mg daily] cyclobenzaprine 10 mg PO BEDTIME PRN diclofenac sodium 1% (Arthritis Pain (diclofenac)) 2 grams topical QID fenofibrate 160 mg PO DAILY losartan 100 mg PO DAILY multivitamin 1 tab PO DAILY omeprazole magnesium (Prilosec OTC) 20 mg PO DAILY PRN sertraline 100 mg PO BEDTIME 3 months valacyclovir 2,000 mg (2 x 1 gram) PO Q12H PRN Tobacco use date assessed: 06/20/25 Dental Screening Dental Screen Date: 06/20/25 Did you have a dental visit in the last 12 months?: Yes Did you have a dental problem in the last 6 months where you did not have access to dental care?: Yes Was dental information given to patient?: Patient has dentist HPI PE HPI Details - The patient is a 65-year-old female pr esenting today for her physical exam. - has a history of hypertension, current ly on losartan 100 mg daily, with blood pressure within normal limits - Recent lab results indicate a very low vitamin D level, currently not on any supplements - has history of depression and reports doing well with sertraline taken 100 mg at bedtime -has hyperlipidemia currently on atorvas tatin and fenofibrate. - Preventative care: The patient is over due for her mammograms , and is due for a bone density screening. She is up-to-date with her cervical cancer screening, last done a year ago which came back negative for malignancy -current cigarette smoker, with no jon e to quit at present time. PFSH Medical History (Updated 06/20/25 @ 09:54 by Orin Gomes MD) History of cold sores Vitamin D deficiency Mixed dyslipidemia Generalized anxiety disorder Essential hypertension Frozen shoulder Bursitis of both hips COVID-19 vaccine series completed Arthritis Depression Elevated cholesterol HTN (hypertension) Surgical History (Updated 06/20/25 @ 09:53 by Orin Gomes MD) History of cataract surgery History of bunionectomy Hx of tonsillectomy H/O colonoscopy Hx of arthroscopic knee surgery Hx of arthroscopy of knee Hx of cervical discectomy Hx of hand surgery Family History Father Hypertension Heart attack Mother Hypertension Stroke Social History Housing: House Are you a primary field care coordinator to a significant other at home: No Do you presently have visiting nurse or other home services: No Comment: counts correct Patient Tobacco Use Status: Current everyday Tobacco user Tobacco use type: Cigarette Cigarettes Per Day: 10 Years Smoked: 42 e-Cigarette/Vaping Use: Never Used service: No Current occupational status: employed 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 Depression Screening Interpretation: Negative Depression Screening Done: Yes Source: Developed by Drs. Dario Ley, Jammie Medina, Ryder Baker and colleagues, with an educational tala from [employer]. Thrive Questionnaire Date Thrive assessed: 12/14/24 I am a: Patient What is your living situation today?: I have a steady place to live Within the past 12 months, did the food you bought not last and you didn't have the money to get more?: I choose not to answer this question Within the past 12 months, did you worry whether your food would run out before you got money to buy more?: I choose not to answer this question Do you have trouble paying for medicines?: No Do you have trouble getting transportation to medical appointments?: No Do you have trouble paying your heating and electricity bill?: I choose not to answer this question Do you have trouble taking care of your child, family member or friend?: No Do you have trouble with day-to-day activities such as bathing, preparing meals, shopping, managing finances, etc.?: No Are you currently unemployed and looking for a job?: No Are you interested in more education?: No Please select the resources that you would like help with: None Currently or been in a relationship where the following occur: No concerns reported THRIVE Score: 0 JAVI-7 AMB Questionnaire JAVI-7 Date JAVI - 7 assessed: 12/14/24 Source: Developed by Drs. Dario Ley, Jammie Medina, Ryder Baker and colleagues, with an educational tala from [employer]. Review of Systems Const Denies fatigue, Denies fever(s), Denies headache(s), Denies weakness and Reports weight loss Eyes Details: Sees Dr. Vickers Denies change in vision ENT Denies dizziness, Denies headache(s) and Denies nasal congestion Card Denies chest pain, Denies lightheadedness, Denies palpitations and Denies dyspnea Resp Denies chest congestion, Denies cough, Denies dyspnea and Denies wheezing GI Denies abdominal pain, Denies change in bowel habits and Denies heartburn Denies hematuria, Denies urinary frequency, Denies dysuria and Denies urinary urgency Musc Reports no additional complaints Skin/Breast Denies breast pain and Denies rash Neuro Denies dizziness, Denies headache(s) and Denies weakness Psych Reports no additional complaints Endo Denies fatigue, Denies polydipsia, Denies polyuria and Denies palpitations Erick/Lymph Denies easy bruising Aller/Immun Denies seasonal rhinorrhea and Denies wheezing Physical exam (Primary Care) Vital Signs: Last Vital Signs Temp 97.9 F 06/20/25 09:09 Pulse 91 06/20/25 09:09 Resp 17 06/20/25 09:09 BP 128/70 06/20/25 09:09 Pulse Ox 97 06/20/25 09:09 Oxygen Delivery Method Room Air 06/20/25 09:09 BMI result Body Mass Index 30.6 Tobacco/Smoking Status: Tobacco use Status Tobacco use date assessed 06/20/25 06/20/25 09:04 Patient Tobacco Use Status Current everyday Tobacco 06/20/25 09:04 Tobacco use type Cigarette 06/20/25 09:04 e-Cigarette/Vaping Use Never Used 06/20/25 09:04 Are you ready to quit: No Tobacco cessation counseling provided: Yes Depression Screening Interpretation: Negative Thrive Assessment: Date of Thrive Assessment Date Thrive assessed 12/14/24 06/20/25 09:04 Currently or been in a relationship where the following occur: No concerns reported Advance Care Planning discussion: Completed/Scanned Date of discussion: 06/20/25 Who was present: patient Forms completed: Health Care Proxy Time spent: 16-45 minutes Actual minutes spent: 2 Const General: comfortable, no acute distress and alert Orientation/consciousness: patient oriented x3 HENMT Ears: external ears normal, TM's normal bilaterally and EAC's normal General nose exam: Normal external nose present and No nasal discharge present Mouth: Normal oral and palatal mucosa present and moist mucous membranes Eyes General: appearance normal, both eyes and all related structures Conjunctivae: conjunctivae normal Sclerae: sclerae normal Pupils: Equal, round and reactive pupils present EOM: EOMs intact bilaterally Neck Neck: Yes full ROM, Yes no lymphadenopathy and Yes supple Chest Chest palpation & inspection: normal inspection of the chest Breast/axilla inspection: normal inspection of the breasts Breast/axilla palpation: normal palpation of the breasts Resp Effort & Inspection: normal respiratory effort and able to speak in complete sentences Auscultation: clear to auscultation bilaterally Cardio Rate: regular rate Rhythm: regular rhythm Heart sounds: S1 normal heart sound present and S2 normal heart sound present GI Palpation (GI): Soft to palpation, nontender and no masses Auscultation: normal bowel sounds Other: Goes to [facility] for her routine Pap and pelvic exam, currently up-to-date General: Yes no CVA tenderness and Yes deferred Back/Spine/Pelvis Back: no CVA tenderness and No back tenderness Skin General skin exam: no rashes or lesions noted Neuro General: patient oriented x3, gait normal, tone normal, moves all extremities and no focal motor deficits Cranial nerves: Yes CN's II-XII intact bilaterally and Yes Equal, round and reactive pupils present Cognition (Neuro): normal cognition Extrem General: Yes full ROM, Yes no joint enlargement, Yes no clubbing, cyanosis or edema and Yes no calf tenderness Psych Appearance: grossly normal and well kempt Mental Status: mental status grossly normal Speech and movement: Normal speech and movement present Affect: normal affect Attitude: cooperative Thought process: Normal thought process present Thought content: Normal thought content present Results Reviewed Results Reviewed: Name: Ondina Burrell Age/Sex: 65/F : 1960 Unit#: [id number] Attend Dr: Orin Gomes MD Re06/13/25 Status: DEP REF Location: [facility] Disch: SPEC : [id number] ERASMO: 06/13/25 STATUS: COMP REQ : [id number] RECD: 06/13/[address]: Orin Gomes MD COMP: 06/13/25 ENTERED: 06/13/[address] [facility] [address]: ORDERED: CBC Auto Diff Test Result Flag Reference WBC 6.0 4.8-10.8 X10*3/uL RBC 4.30 4.20-5.50 X10*6/uL HGB 12.9 12.0-16.0 g/dl HCT 39.2 37.0-47.0 % MCV 91.2 80.0-98.0 fL MCH 30.0 27.0-33.0 pg MCHC 32.9 31.0-35.0 g/dl RDW 14.2 11.0-16.0 % PLT 278 160-400 X10*3/uL MPV 11.7 9.4-12.3 fL Neut Pct Auto 56.5 45-73 % ImGran Pct Auto 0.7 H 0.0-0.4 % Lymp Pct Auto 27.8 20-40 % [place] Pct Auto 10.6 2-11 % Eos Pct Auto 3.4 0-4 % Baso Pct Auto 1.0 0-2 % NRBC Pct Auto 0.0 0.0-0.2 /100WBC ANC Neut Abs # 3.4 2.0-8.3 x10*3/uL ImGran Abs Auto 0.04 H 0.00-0.03 X10*3/uL Lymph Abs Auto 1.7 1.2-4.9 X10*3/uL [place] Abs Auto 0.6 0.1-1.2 X10*3/uL Eos Abs Auto 0.2 0.0-0.4 X10*3/uL Baso Abs Auto 0.1 0.0-0.2 X10*3/uL NRBC Abs Auto 0.000 0.0-0.012 X10*3/uL RUN: 06/20/25 0934 PAGE 1 [facility] [address] [place] [phone] Parts Sales Representative: Vitaly Tariq M.D. Specimen Inquiry Name: Ondina Burrell Age/Sex: 65/F : 1960 Unit#: [id number] Attend Dr: Orin Gomes MD Re06/13/25 Status: DEP REF Location: [facility] Disch: SPEC : [id number] ERASMO: 06/13/25 STATUS: COMP REQ : [id number] RECD: 06/13/[address] [facility] [address]: Orin Gomes MD COMP: 06/13/258 ENTERED: 06/13/[address] [facility] [address]: ORDERED: Met Prof Fast, AST, ALT, Lipid Panel, Vitamin D 25-OH Test Result Flag Reference Sodium 142 135-145 mmol/L Potassium 4.2 3.3-5.1 mmol/L CL 106 96-108 mmol/L CO2 29 22-29 mmol/L Gap 11 L 12-20 BUN 13 9-16 mg/dL Creat 0.58 0.5-1.4 mg/dL eGFR > 60 Chronic Kidney Disease: Estimated GFR < 60 mL/min/1.73m2 Severe Kidney Disease: Estimated GFR < 15 mL/min/1.73m2 FBS 97 60-99 mg/dL CA 9.2 8.4-10.2 mg/dL AST (GOT) 27 5-31 U/L ALT (GPT) 17 0-31 U/L Triglyceride 135 <150 mg/dL Desirable Triglyceride: less than 150 mg/dL Borderline High Triglyceride 150-199 mg/dL High Triglyceride: 200-499 mg/dL Very High Triglyceride: greater than or equal to 5OO mg/dL Cholesterol 191 <200 mg/dL Desirable Cholesterol: less than 200 mg/dL Borderline High Cholesterol: 200-239 mg/dL High Cholesterol: greater than 239 mg/dL LDL Calculated 106 H <100 mg/dL Desirable LDL: less than 100 mg/dL Near Optimal/Above Optimal LDL: 110-129 mg/dL Borderline High LDL: 130-159 mg/dL High LDL: 160-189 mg/dL Very High LDL: greater than or equal to 190 mg/dL HDL 58 >40 mg/dL Desirable HDL: greater than 40 mg/dL Note: This HDL assay may give artificially low results in patients with liver disease. Vitamin D 25-OH 18.4 L >30 ng/mL Health Based Reference Values* < 20 ng/mL Deficient 20-30 ng/mL Insufficient > 30 ng/mL Sufficient Coding Level of Care Code Est Pt Prev Care 40-64y(21019) Diagnoses Annual visit for general adult medical examination with abnormal findings Z00. Generalized anxiety disorder F41.1 Essential hypertension I10 Vitamin D deficiency E55.9 Mixed dyslipidemia E78.2 Advance directive discussed with patient Z71.89 Additional Codes Vital Signs *Quality* - Advance Care Planning discussion: Completed/Scanned ([id number]) Vital Signs *Quality* - Time spent: 16-45 minutes ([id number]) Assessment & Plan Assessment & Plan (1) Annual visit for general adult medical examination with abnormal findings: Code(s): Z00.01 - Encounter for general adult medical examination with abnormal findings (2) Generalized anxiety disorder: Code(s): F41.1 - Generalized anxiety disorder Category: Medical (3) Essential hypertension: Code(s): I10 - Essential (primary) hypertension Category: Medical (4) Vitamin D deficiency: Code(s): E55.9 - Vitamin D deficiency, unspecified Category: Medical (5) Mixed dyslipidemia: Code(s): E78.2 - Mixed hyperlipidemia Category: Medical (6) Advance directive discussed with patient: Code(s): Z71.89 - Other specified counseling Plan: Initiated the conversation about Advanced Directives. Advanced Directives help patients prepare for current and future decisions about their medical treatment and place of care. Discussed with patient that it is a process where a patients current condition and prognosis are reviewed, their wishes for information regarding their illness are elicited, and likely medical dilemmas are presented and options discussed. Healthcare proxy form completed today. The form can be amended as needed, reviewed yearly and make changes as needed Plan The patient will continue with her current hypertension management, and regular monitoring of blood pressure is advised. Vitamin D supplementation is recommended to address the deficiency and prevent potential complications such as bone thinning and fatigue. Depression and anxiety management will continue with the current medication regimen, as the patient reports stability with her treatment. Preventative care measures include scheduling a mammogram and bone density screening. The patient is advised to verify insurance coverage for these screenings. Follow-up on the normal colonoscopy results ordered, and future screenings will be planned accordingly. Vaccinations are up to date with the shingles and pneumococcal vaccines administered. Patient was informed and verbally consented to the use of an ambient scribe for clinic note documentation during this visit. Medications: New cholecalciferol (vitamin D3) 1,250 mcg PO QWEEK 13 caps 0RF 3 months E55.9 - Vitamin D deficiency, unspecified
[2025-06-20 09:09] VITALS: BP 128/70; PULSE 91; RESP 17; TEMP 36.6; O2SAT 97; BMI 30.6
--- OUTSIDE RECORDS SUMMARY | 2025-06-20 09:26 | XMS_ITS | Encounter Summary ---
Author Organization [facility] Address [address] [place] [address] [place] [phone] Phone Care Team Providers Care Assistant Professor Of Radiology Name Role Phone Mai Borges NP Primary Care Provider [phone] Steve Vickers MD Unavailable Unknown, Unknown Primary Care Provider Ismael purvis Encounter Details Date Type Department Care Team (Late st Contact Info) Description 01/26/2024 Procedure Pass [facility] Endoscopy Admitting Dept Virtual Department [address] [place] [address] Social History Tobacco Use Types Packs/Day Years [...] high school, GED, job training, learning the [place] language, technical skills, or developing parenting skills)? [...] documented as of this encounter Care Teams Assistant Professor Of Radiology Relationship Specialty Start Date End Date Mai Borges, PSYCHOLOGIST MILITARY PERSONNEL [email or web address] PCP - General Family Medicine 12/21/17 01/26/24 Unknown, Unknown, MD PCP - General 01/27/24 Steve Vickers MD [address] [place] [address] [place] [address] Ophthalmology 06/05/21 documented as of this encounter Additional Source Comments The information contained in this document represents components of the legal health record. It is not the complete legal health record.[facility]
== END 2025-06-20 09:55 | disposition home or self-care (01) ==
LOC: HO.HMCC 08:41
PROVIDERS: PCP Internal Medicine; Visit Provider Internal Medicine
DX: Z00.01 Encounter for general adult medical examination with abnormal findings (principal); F41.1 Generalized anxiety disorder; I10 Essential (primary) hypertension; E55.9 Vitamin D deficiency, unspecified; E78.2 Mixed hyperlipidemia; Z71.89 Other specified counseling; Z00.00 Encounter for general adult medical examination without abnormal findings